=== PATIENT | female | born 1995 | race Caucasian/White ===

== ENCOUNTER 2018-02-09 15:37 | Outpatient (REF) | payer OTHER, SELFPAY ==
[2018-02-09 18:41] LABS: ALT 23 U/L (12-78); AST 19 U/L (15-37); Albumin 3.7 g/dL (3.4-5.0); Alkaline Phosphatase 78 U/L (46-116); Anion Gap 9.8 mmol/L (3-11); BUN 13 mg/dL (7-18); Bilirubin, Total 0.4 mg/dL (0.2-1.0); CO2 24.2 mmol/L (21.0-32.0); CREATININE 0.88 mg/dL (0.55-1.02); Calcium 9.2 mg/dL (8.5-10.1); Chloride 104 mmol/L (98-107); Glucose 105 mg/dL (70-100); HDL Cholesterol 48 mg/dL (40-60); LDL CHOLESTEROL 117 mg/dL (<100); Sodium 138 mmol/L (136-145); TSH 0.41 uIU/mL (0.358-3.74)
== END 2018-02-09 15:57 ==
LOC: NCHCN 15:37
PROVIDERS: PCP Nurse Practitioner Family; Visit Provider Nurse Practitioner Family
DX: R63.5 Abnormal weight gain (principal)
CPT/HCPCS: 80053; 83721; 83718; 84443

== ENCOUNTER 2018-06-06 16:01 | Emergency (ER) | payer OTHER, SELFPAY ==
[2018-06-06 16:03] VITALS: BP 127/77; PULSE 84; RESP 16; TEMP 36.7; O2SAT 99
--- NOTE | 2018-06-06 16:13 | ED.GENADUL_ITS ---
Discharge Plan Disposition Patient Disposition: HOME Condition: Good Discharge Details Chief Complaint: Nk/Back Pain Clinical Impression: Muscle spasms of neck Primary Care Provider: Alee Franco ED Provider: Warren Marley [place] Meds and New Rx's Prescriptions: New lidocaine [Lidoderm] 5 % Adhesive Patch,Medicated 1 patch topical DIRECTED Qty: 5 RF: 0 methocarbamol [Robaxin-750] 750 mg tablet 750 mg PO QID Qty: 20 RF: 0 Continued ergocalciferol (vitamin D2) 400 UNIT tablet 1 tab-cap PO DAILY RF: 0 MOTRIN 800 MG tablet 800 mg PO TID RF: 0 escitalopram oxalate [Lexapro] 10 MG tablet 25 mg PO DAILY Qty: 90 RF: 1 omeprazole 20 MG capsule,delayed release(DR/EC) 20 mg PO DAILY RF: 0 magnesium oxide 500 MG capsule 1,000 mg PO DAILY RF: 0 bupropion HCl (smoking deter) 150 MG tablet extended release 12 hr 300 mg PO DAILY RF: 0 metformin 500 mg Tablet PO HS RF: 0 Discontinued cyclobenzaprine 5 mg Tablet PO HS RF: 0 Discharge Instructions Instructions: Muscle Spasm (ED) Additional Instructions: Continue ibuprofen for anti-inflammatory effect. Use Lidoderm patches to help with pain. Try Robaxin for muscle relaxer. Do not take the Flexeril. May use Tylenol 1 g every 6 hours for pain as well. Follow-up with your primary care next week if not better. Return to emergency department if you develop fever, neurologic changes, chest pain, shortness of breath Referrals: Alee Franco [Primary Care Provider] - Medical Decision Making Patient with pain and muscle spasm that is likely related to left trapezius spasm given her location/description of pain. She has no history of trauma and has no midline tenderness. She has no chest pain or shortness of breath. Pain is worse with movement not with breathing. Will continue ibuprofen. Will try Lidoderm patch. Will prescribe a new muscle relaxer as Flexeril does not work for her. She is neurologically intact. She does not have fever or headache. She has primary care to follow-up with next week if not better. Return to ED for fever, headache, chest pain, shortness of breath, neurologic changes. HPI General Mode of arrival: ambulatory . Date/Time Provider Initiated Documentation: 06/06/18 16:09 . Limitations to Documentation: no limitations . Information obtained by: patient and RN notes reviewed . HPI Narrative: Patient presents to ED with complaint of left-sided neck and shoulder pain. Patient states she woke up yesterday and had spasm and discomfort in her neck. Seemed to get a little worse over the course of the day. She has used ibuprofen, heat, ice. When she woke up this morning it was worse. It seems to run from the back of the head down to the scapular and out toward the shoulder at this point. She has to turn as a unit because it hurts too much to turn her neck. She denies headache. She denies fever or URI symptoms. She denies chest pain, shortness of breath, pleuritic pain. She has no neurologic symptoms and denies numbness or weakness of the extremities. She denies any trauma. Related Data Home Medications Medication Instructions Recorded Confirmed Motrin 800 mg PO TID tab-cap 07/12/12 06/06/18 ergocalciferol (vitamin D2) 1 tab-cap PO DAILY tab-cap 07/12/12 06/06/18 escitalopram oxalate [Lexapro] 25 mg PO DAILY #90 tab-cap 07/26/12 06/06/18 bupropion HCl (smoking deter) 300 mg PO DAILY 10/28/16 06/06/18 magnesium oxide 1,000 mg PO DAILY 10/28/16 06/06/18 omeprazole 20 mg PO DAILY tab-cap 10/28/16 06/06/18 lidocaine [Lidoderm] 1 patch TOPICAL DIRECTED #5 ea 06/06/18 metformin tab PO HS 06/06/18 methocarbamol [Robaxin-750] 750 mg PO QID #20 tab 06/06/18 Previous Rx's Medication Instructions Recorded lidocaine [Lidoderm] 1 patch TOPICAL DIRECTED #5 ea 06/06/18 methocarbamol [Robaxin-750] 750 mg PO QID #20 tab 06/06/18 Allergies Allergy/AdvReac Type Severity Reaction Status Date / Time No Known Allergies Allergy Unverified 06/06/18 16:08 General Stated Complaint: Nk/Back Pain ROBERT: 3 Review of Systems Constitutional Denies chills, Denies fever(s), Denies headache(s), Denies malaise and Denies weakness ENT Denies otalgia, Denies facial pain, Denies headache(s), Denies nasal congestion, Reports neck pain, Denies sinus pain, Denies sinus pressure and Denies sore throat Cardiovascular Denies chest pain, Denies diaphoresis, Denies syncope, Denies palpitations and Denies dyspnea Respiratory Denies cough and Denies dyspnea Musculoskeletal Denies back pain, Denies arthralgias, Denies muscle weakness, Reports neck pain, Denies numbness, Denies radiating pain into limb and Denies tingling Integumentary/Breasts Denies rash Neurologic Denies syncope, Denies headache(s), Denies focal weakness, Denies numbness, Denies radicular pain, Denies sensory deficit, Denies tingling, Denies paresthesias and Denies weakness Endocrine Denies palpitations PFSH Medical History Anxiety (Chronic) Depression (Chronic) GERD (gastroesophageal reflux disease) (Chronic) Migraine (Chronic) RSD (reflex sympathetic dystrophy) (Chronic) Surgical History History of surgical procedure (Inactive) Social History Smoking and Tabacco status: Never Exam Const General: cooperative and no acute distress Orientation: alert and oriented x3 [facility] Head: normocephalic and atraumatic Face and sinus: normal facial exam Neck Neck: normal visual inspection, limited ROM, trachea midline and supple Resp Effort & Inspection: normal respiratory effort Auscultation: clear to auscultation bilaterally Cardio Rate: regular rate Rhythm: regular rhythm Heart Sounds: S1 normal and S2 normal Pulses: radial pulses present Back/Spine/Pelvis Cervical Spine: cervical muscular tenderness, pain with cervical ROM and No cervical spinal tenderness Neuro General: alert, oriented x3, no focal motor deficits and CN's II-XI intact bilaterally Cognition: normal cognition Speech: speech normal Gait: normal gait Sensory Exam: no sensory deficits noted Course Vital Signs Temperature 98.1 F 06/06/18 16:03 Pulse 84 06/06/18 16:03 Respiratory Rate 16 06/06/18 16:03 Blood Pressure 127/77 06/06/18 16:03 Pulse Oximetry 99 06/06/18 16:03 Temperature 98.1 F 06/06/18 16:03 Temperature Source Skin 06/06/18 16:03 Pulse 84 06/06/18 16:03 Respiratory Rate 16 06/06/18 16:03 Blood Pressure 127/77 06/06/18 16:03 Blood Pressure Position Sitting 06/06/18 16:03 Pulse Oximetry 99 06/06/18 16:03 Oxygen Delivery Method Room Air 06/06/18 16:03 Oxygen Flow Rate 0 06/06/18 16:03 Pain Level 7 06/06/18 16:03
[2018-06-06] MEDS: Lidocaine 5% Patch 1 PATCH TP (16:23)
[2018-06-06 16:28] VITALS: BP 127/77; PULSE 84; RESP 16; TEMP 36.7; O2SAT 99
== END 2018-06-06 16:28 | disposition home or self-care (01) ==
PROVIDERS: Emergency Provider Emergency Medicine; PCP Nurse Practitioner Family
DX: M62.830 Muscle spasm of back (principal); M54.6 Pain in thoracic spine
CPT/HCPCS: 99283

== ENCOUNTER 2019-04-08 08:54 | Outpatient (REF) | payer OTHER, SELFPAY ==
--- NOTE | 2019-04-08 08:15 | PAPFT_PTH ---
PATIENT: Shruthi Rosenberg LOC: [facility] U#:[id number] AGE/SX: 23/F ROOM: RE04/08/[address]: Alee Franco : 1995 BED: DIS: 04/08/2019 SPEC #: [id number] RECD: 04/09/19 12:54 STATUS: LAUREN REQ #: [id number] TROY: 04/08/19 08:[address]: Alee Franco DEPT: [facility] Cytology RECD BY: Emili Saavedra Tissues: 1 - CX/ENDOCX FOR PAP SMEARS Procedures: PAP THIN PREP/[facility] Screening Comments: [id number]
[2019-04-08 22:55] LABS: HCT 38.6 % (36.0-46.0); HGB 12.6 g/dL (12.0-15.5); Mean Corp. HGB Concentration 32.6 g/dL (32.0-36.0); Mean Corpuscular Hemoglobin 29.2 pg (27.0-33.0); Mean Corpuscular Volume 89.4 fL (80-95); Platelet Count 323 x1000/uL (130-400); RBC 4.32 m/cumm (4.00-5.20); RBC Distribution Width 13.1 % (11.7-14.6)
[2019-04-08 23:21] LABS: Ferritin 10 ng/mL (8-252); Magnesium 1.9 mg/dL (1.8-2.4); Potassium 4.4 mmol/L (3.5-5.1)
== END 2019-04-08 09:14 ==
LOC: NCHCN 08:54
PROVIDERS: PCP Nurse Practitioner Family; Visit Provider Nurse Practitioner Family
DX: R25.2 Cramp and spasm (principal); Z12.4 Encounter for screening for malignant neoplasm of cervix; Z01.419 Encounter for gynecological examination (general) (routine) without abnormal findings
CPT/HCPCS: 85027; 88142; 82728; 83735; 84132

== ENCOUNTER 2020-02-10 16:19 | Outpatient (REF) | payer MEDICAID, SELFPAY ==
[2020-02-10 20:09] LABS: Calculated LDL 117 mg/dL (<100); Cholesterol 189 mg/dL (<200); Glucose 104 mg/dL (74-106); HDL Cholesterol 40 mg/dL (40-60); TSH 0.74 uIU/mL (0.36-3.74); Triglyceride 164 mg/dL (<150)
[2020-02-10 20:20] LABS: Vitamin D 25 Total 30.9 ng/ml (30-100)
[2020-02-17 13:13] LABS: Testosterone, Total 28 ng/dL (8-60)
[2020-02-20 12:09] LABS: FSH 5.6 IU/L
[2020-02-20 12:10] LABS: LH 9.7 IU/L
[2020-02-20 12:13] LABS: Progesterone <0.20 ng/mL
[2020-02-20 12:16] LABS: DHEA Sulfate 204 mcg/dL (83-377)
== END 2020-02-10 16:39 ==
LOC: NCHCN 16:19
PROVIDERS: PCP Nurse Practitioner Family; Visit Provider Nurse Practitioner Family
DX: F41.1 Generalized anxiety disorder; L70.9 Acne, unspecified; F32.9 Major depressive disorder, single episode, unspecified; N92.0 Excessive and frequent menstruation with regular cycle; Z86.39 Personal history of other endocrine, nutritional and metabolic disease
CPT/HCPCS: 80061; 82306; 82627; 82947; 84402; 84403; 83001; 83002; 84144; 84443

== ENCOUNTER 2020-07-13 13:11 | Outpatient (REF) | payer MEDICAID, SELFPAY ==
[2020-07-13 15:24] LABS: Abs Immature Grans 0.02 10^3/uL (0.0-0.06); Absolute Basophil Count 0.03 10^3/uL (0.0-0.2); Absolute Eosinophil Count 0.19 10^3/uL (0.0-0.7); Absolute Lymphocyte Count 2.03 10^3/uL (1.2-3.4); Absolute Monocyte Count 0.38 10^3/uL (0.1-0.8); Absolute Neutrophil Count 2.69 10^3/uL (1.2-6.7); Basophils % 0.6; Eosinophils % 3.6; Immature Grans % 0.4; MCH 31.3 pg (27.0-33.0); MCHC 33.3 % (32.0-36.0); MPV 12.5 fL (8.0-11.0); Monocytes % 7.1; Neutrophils % 50.3; Nucleated RBC 0 %; Platelet Count 261 10^3/uL (130-400); RBC 4.15 10^6/uL (3.93-5.22); RDW 11.9 % (11.7-14.6); RDW-SD 41.3 fL; WBC 5.34 10^3/uL (4.4-10.8)
[2020-07-13 15:45] LABS: Hemoglobin A1C 5.4 % (<5.7)
[2020-07-13 15:48] LABS: TSH (W/Ref FT4) 0.55 uIU/mL (0.36-3.74)
[2020-07-13 16:27] LABS: Vitamin B12 438 pg/mL (193-986)
== END 2020-07-13 13:12 | disposition home or self-care (01) ==
LOC: NCHCN 13:11
PROVIDERS: PCP Nurse Practitioner Family; Visit Provider Nurse Practitioner Family
DX: R20.2 Paresthesia of skin (principal); Z13.1 Encounter for screening for diabetes mellitus
CPT/HCPCS: 82607; 83036; 84443; 85025

== ENCOUNTER 2020-08-05 08:11 | Outpatient (CLI) | payer MEDICAID, SELFPAY ==
[2020-08-05 10:17] LABS: Source Nasal/Nares
[2020-08-05 14:18] LABS: COVID-19 PCR Negative (Negative)
== END 2020-08-05 08:12 | disposition home or self-care (01) ==
PROVIDERS: PCP Nurse Practitioner Family; Visit Provider Obstetrics & Gynecology
DX: Z20.822 Contact with and (suspected) exposure to COVID-19 (principal); Z01.818 Encounter for other preprocedural examination
CPT/HCPCS: 87635

== ENCOUNTER 2021-05-17 03:09 | Outpatient (CLI) | payer MEDICAID, SELFPAY ==
[2021-05-17 10:21] LABS: Source Nasal/Nares
[2021-05-17 12:26] LABS: COVID-19 PCR Negative (Negative)
== END 2021-05-17 03:10 | disposition home or self-care (01) ==
LOC: LBO 03:09
PROVIDERS: PCP Nurse Practitioner Family; Visit Provider Student in an Organized Health Care Education/Training Program
DX: Z20.822 Contact with and (suspected) exposure to COVID-19 (principal); Z01.818 Encounter for other preprocedural examination
CPT/HCPCS: 87635

== ENCOUNTER 2021-05-18 06:11 | Day surgery (SDC) | payer MEDICAID, SELFPAY ==
[2021-05-18 06:25] VITALS: BP 128/84; PULSE 76; RESP 16; TEMP 36.1; O2SAT 100
[2021-05-18] MEDS: Lactated Ringers 1,000 ML 80 ML IV (06:48)
--- NOTE | 2021-05-18 07:00 | W.PREOPHP ---
Assessment and Plan Assessment and plan (1) Bilateral carpal tunnel syndrome: Status: Acute Assessment and plan: Shruthi is a 25 year old female who has bilateral carpal tunnel syndrome. She has failed basic nonoperative options and desires to proceed with endoscopic carpal tunnel release, today on the right side and then proceeding to the left side in the next few weeks. I discussed the technical details of carpal tunnel release and that I perform an endoscopic release, but would make a larger, open, incision if necessary for visualization. I discussed the risks of the procedure to include, but not limited to, bleeding, infection, palmar pain, stiffness, damage to nerves, damage to vessels, damage to tendons, weakness, recurrence, and incomplete release. Given these risks, Shruthi desires to proceed. History of Present Illness History of Present Illness Chief Complaint: Bilateral Carpal Tunnel Syndrome Narrative: Shruthi is a 25yo female with bilateral carpal tunnel syndrome. She has had nerve conduction studies which confirm the diagnosis in addition to her clinical history of numbness and tingling of the median nerve distribution of both hands. She reports no acute medical issues. No chest pain or SOB. No COVID-19 sick contacts or exposures. She tested negative. Review of Systems All systems reviewed & are unremarkable except as noted in HPI and below PFSH All Active Problems Hallux rigidus, right foot (Acute 01/06/17) Bilateral carpal tunnel syndrome (Acute) Medical History Anxiety Depression GERD (gastroesophageal reflux disease) Migraine RSD (reflex sympathetic dystrophy) Surgical History History of surgical procedure placement and removal of neurostimulator Social History Smoking/Tobacco Use Status: Never Smoking risk assessment performed?: Yes Alcohol Intake: never Drug use: Daily Substance use type: marijuana Details: Drank marijuana oil 05/17/21 around 0900 Do you feel safe at home: Yes Do you feel safe in your relationship?: Yes Additional Social history: Partner in room Meds Allergies and Home Medications Allergies Allergy/AdvReac Type Severity Reaction Status Date / Time No Known Allergies Allergy Unverified 05/18/21 06:29 Home Medications Medication Instructions Recorded Confirmed Type Motrin 800 mg PO TID tab-cap 07/12/12 05/18/21 History ergocalciferol (vitamin D2) 1 tab-cap PO DAILY tab-cap 07/12/12 05/18/21 History escitalopram oxalate [Lexapro] 25 mg PO DAILY #90 tab-cap 07/26/12 05/18/21 History bupropion HCl (smoking deter) 300 mg PO DAILY 10/28/16 05/18/21 History magnesium oxide 1,000 mg PO DAILY 10/28/16 05/18/21 History omeprazole 20 mg PO DAILY tab-cap 10/28/16 05/18/21 History gabapentin 300 mg capsule 300 mg PO BID 02/11/21 05/18/21 History acetaminophen [Tylenol] 650 PO PRN PRN 05/18/21 History Exam Narrative Exam Narrative: Evaluation of bilateral wrists shows no masses or skin changes. Decreased sensation in median nerve distribution which is worsened with Phalen and Rachel's tests. Palpable radial pulse bilaterally. Resp Effort & Inspection: normal respiratory effort Auscultation: clear to auscultation bilaterally Cardio Rate: regular rate Rhythm: regular rhythm Results Last Vital Signs Temp 36.1 C L 05/18/21 06:25 Pulse 76 05/18/21 06:25 Resp 16 05/18/21 06:25 BP 128/84 05/18/21 06:25 Pulse Ox 100 05/18/21 06:25
--- NOTE | 2021-05-18 07:04 | W.ANESPRE ---
General Info Date of Service Date Performed: 05/18/21 Height: 5 ft 2 in Weight: 106.9 kg Body Mass Index (BMI): 43.1 Surgical Procedure: Operation Date: 05/18/21 07:40 Proposed Procedures Side Surgeon p Wrist ECTR Right Len Chan MD Meds Allergies and Home Medications Allergies Allergy/AdvReac Type Severity Reaction Status Date / Time No Known Allergies Allergy Unverified 05/18/21 06:29 Home Medication Medication Instructions Recorded Motrin 800 mg PO TID tab-cap 07/12/12 ergocalciferol (vitamin D2) 1 tab-cap PO DAILY tab-cap 07/12/12 escitalopram oxalate [Lexapro] 25 mg PO DAILY #90 tab-cap 07/26/12 bupropion HCl (smoking deter) 300 mg PO DAILY 10/28/16 magnesium oxide 1,000 mg PO DAILY 10/28/16 omeprazole 20 mg PO DAILY tab-cap 10/28/16 gabapentin 300 mg capsule 300 mg PO BID 02/11/21 acetaminophen [Tylenol] 650 PO PRN PRN 05/18/21 Current Visit Medications: Current Medications Generic Name Dose Route Start Last Admin Trade Name Freq PRN Reason Stop Dose Admin Ringer's Solution 1,000 mls @ 80 mls/hr 05/18/21 06:00 05/18/21 06:48 IV 06/16/21 23:59 80 mls/hr INFUSION JACQUELINE Administration Cefazolin Sodium/Dextrose 2 gm in 50 mls @ 100 mls/hr 05/18/21 06:00 Ancef Duplex IVPB 06/16/21 23:59 PREOP JACQUELINE IV Miscellaneous Supplies 1 each 05/18/21 06:00 Iv Access IV 06/16/21 23:59 DIRECTED JACQUELINE Sodium Chloride 0 ml 05/18/21 06:00 Normal Saline Flush 10 Ml Syr IV 06/16/21 23:59 PRN PRN Sodium Chloride 0 ml 05/18/21 06:00 Normal Saline 10 Ml Vial IJ 06/16/21 23:59 DIRECTED PRN Sterile Water 0 ml 05/18/21 06:00 Water,Injection,Sterile 10 Ml Vial IJ 06/16/21 23:59 DIRECTED PRN PFSH Active Problems Active Problems: Problem Status Onset Code Hallux rigidus, right foot 01/06/17 M20.21 Bilateral carpal tunnel syndrome G56.03 Medical History Medical History Anxiety Depression GERD (gastroesophageal reflux disease) Migraine RSD (reflex sympathetic dystrophy) Medical History Comments:: pt reports no metal, no dentures, no loose teeth Surgical History Surgical History History of surgical procedure placement and removal of neurostimulator Tobacco Smoking/Tobacco Use Status: Never Alcohol Alcohol Intake: never Substance Use Substance use: Daily Substance use type: marijuana Details: Drank marijuana oil 05/17/21 around 0900 Vital Signs and Lab Results Vital Signs Most Recent Vital Signs in EMR: Most Recent Vital Signs Temp Pulse Resp BP Pulse Ox 36.1 C L 76 16 128/84 100 05/18/21 06:25 05/18/21 06:25 05/18/21 06:25 05/18/21 06:25 05/18/21 06:25 Point of Care Results Point of Care Results: POC- Test(urine) Negative 05/18/21 06:42 Lab Results Blood Type / Crossmatch: No Data to Display Complete Blood Count: No Data to Display Complete Metabolic Panel: No Data to Display Liver Function Panel: No Data to Display Coagulation Panel: No Data to Display Cardiac Panel: No Data to Display Arterial Blood Gas: No Data to Display Venous Blood Gas: No Data to Display Pancreas Panel: No Data to Display Thyroid Panel: No Data to Display Infectious Disease: Coronavirus (COVID-19)(PCR) Negative (Negative) 05/17/21 08:43 05/17/21 Coronavirus 2019 Source Nasal/Nares 05/17/21 08:43 05/17/21 Blood Cultures: No Data to Display Toxicology Panel: No Data to Display Panel: No Data to Display Anesthesia Assessment and Plan Anesthesia History Personal History: No History of Anesthesia Complications Family History: No Family History of Anesthesia Complications Exercise Tolerance Exercise Tolerance: Metabolic Equivalents>4 Pertinent Negatives Pertinent Negatives: No Symptoms of GERD, No Major Cardiovascular Symptoms or Complaints, No Major Pulmonary Symptoms or Complaints and No History of CVA/TIA Cardiac & Pulmonary Exam Cardiac Exam: Normal S1/S2 Heart Sounds Pulmonary Exam: Clear Bilateral Breath Sounds Implantable Cardiac Device Does patient have a Pacemaker or an ICD?: No Airway Exam Known Difficult Airway: No Mallampati Class: 1 Mouth Opening: Normal (> 3cm) Thyromental Distance: Greater than 3 cm Neck Range of Motion: Full ROM Neck Circumference: Normal Teeth Condition: Normal Dentition ASA Classification ASA Score: ASA 2 Emergency Case?: No NPO Status NPO Status: NPO Clears >2 hours, Solids >8 hours Status Status: Negative HCG Anesthesia Plan Resuscitation Status: Full Code Anesthesia Technique: General Anesthesia Airway Planned: Natural Airway Monitors Used: Standard Monitors
[2021-05-18 07:05] VITALS: BMI 43.1
--- NOTE | 2021-05-18 07:07 | W.PM.DSUDISC ---
Discharge Plan Disposition Patient Disposition: HOME Condition: Good Discharge Details Reason For Visit: Right Carpal Tunnel Syndrome Attending Provider: Len Chan Primary Care Provider: Alee Franco Home Meds and New Rx's Prescriptions: New acetaminophen 500 mg tablet 500 mg PO Q6H PRN PRN (Reason: pain) Qty: 60 RF: 3 hydrocodone-acetaminophen 5-325 mg tablet 1 tab PO Q6H PRN (Reason: pain) Qty: 4 RF: 0 ibuprofen 600 mg tablet 600 mg PO TID PRN (Reason: pain) Qty: 90 RF: 3 Continued gabapentin 300 mg capsule 300 mg PO BID RF: 0 ergocalciferol (vitamin D2) 400 UNIT tablet 1 tab-cap PO DAILY RF: 0 escitalopram oxalate [Lexapro] 10 MG tablet 25 mg PO DAILY Qty: 90 RF: 1 omeprazole 20 MG capsule,delayed release(DR/EC) 20 mg PO DAILY RF: 0 magnesium oxide 500 MG capsule 1,000 mg PO DAILY RF: 0 bupropion HCl (smoking deter) 150 MG tablet extended release 12 hr 300 mg PO DAILY RF: 0 Discontinued MOTRIN 800 MG tablet 800 mg PO TID RF: 0 acetaminophen [Tylenol] 325 mg Capsule 650 mg PO PRNRF: 0 Discharge Instructions Stand Alone Forms: Dustin Milton Tunnel Release Referrals: Len Chan MD [ [facility] STAFF PHYSICIAN] - Activity:: Elevate Remove Dressings/Wound Care:: 48 hours Shower/Bathe:: 48 hours Diet:: As Tolerated Discharge Orders Discharge Orders: Discharge Order (Routine); Ordered 05/18/21 Ordered By: Len Chan DS: Diagnosis Discharge Diagnosis (1) Bilateral carpal tunnel syndrome: Status: Acute
[2021-05-18] MEDS: ceFAZolin 2 GM/50 ML BAG IVPB (07:16)
[2021-05-18] MEDS: Sodium Bicarbonate 50 MEQ/50 ML VIAL (07:37)
--- NOTE | 2021-05-18 07:42 | ROE_ITS ---
Date of service: 05/18/21 Time of Service: 07:42 Operative Note Operative Note DATE OF PROCEDURE: 05/18/21 PRE-OP DIAGNOSIS: Right Carpal Tunnel Syndrome POST-OP DIAGNOSIS: same PROCEDURE: Right Endoscopic Carpal Tunnel Release SURGEON: Len Chan ANESTHESIA TYPE: General:No Airway Refer to Anesthesia Record ESTIMATED BLOOD LOSS: 0 PATHOLOGY: none sent TOURNIQUET TIME: 5 COMPLICATIONS: None Patient was transported to: same day Patient's condition: stable Indications: I have seen Shruthi in clinic for symptoms of carpal tunnel syndrome. The numbness, tingling, and pain limited function. Clinical exam findings with nerve conduction tests confirmed the diagnosis of carpal tunnel syndrome. Nonoperative measures such as bracing, time, activity modifications had been tried but disability and pain persisted. I discussed carpal tunnel release with the patient. I reviewed the risks of the procedure to include, but not limited to, bleeding, infection, pain, stiffness, incomplete release, damage to nerves or vessels, persistent numbness, recurrence. Despite these risks, the patient elected to proceed. Findings: There was tightened carpal tunnel. This was dilated and released successfully with the endoscopic with increased space within the tunnel. The antebrachial fascia was released proximally freeing the median nerve at the wrist. Procedure Description: Shruthi was greeted in the preoperative holding area where the correct side was identified and marked. The consent was reviewed with the patient and signed. The history and physical was updated. All questions were answered. She was taken back to the operating room. The patient was placed into the supine position on the operating room table with the right arm on an arm board. A nonsterile tourniquet was placed high onto the arm. All bony prominences were well padded. Prophylactic antibiotics in the form of Cefazolin were administered. The right arm was then prepped with Chloraprep and draped in a standard fashion with stockinette and extremity drape. A timeout to confirm correct identity, side and site, procedure, allergies, anesthesia, and medical concerns was performed. The surgical site was marked in the volar wrist creases in line with the radial border of the fourth ray. This area was anesthetized with approximately 6cc of 1% Lidocaine. The limb was then exsanguinated with an Esmarch. The skin was incised with a 15 blade, approximately 1cm. The skin only was cut and the deeper tissue was dissected bluntly with a tenotomy scissor, avoiding passing nerve and venous structures. The fascia was penetrated and opened bluntly. A two-prong skin hook was placed under this proximal fascial edge. A series of hamate finders were used to identify and dilate the carpal tunnel. Synovial elevator was used to free synovial attachments to the underside of the transverse carpal ligament. My thumb was kept in the palm to jackie the distal extent of the carpal tunnel and correctly position the hand. The [employer] end oscope was inserted without difficulty and without resistance. Excellent visualization showed horizontally running fibers of the transverse carpal ligament (TCL). The distal extent of the TCL was visualized and the end of the scope palpated with the thumb. The blade was elevated and withdrawn from distal to proximal. The TCL was split into two flaps. The endoscope was reinserted to confirm complete release and any remnant ligament was incised. The scope was withdrawn and the proximal aspect of the carpal tunnel was grossly inspected and appeared release with the median nerve visible. The antebrachial fascia at the level of the wrist was then freed from the overlying skin and then the underlying median nerve with blunt dissection. This was transected longitudinally for about 3cm proximal to the wrist incision. The wound was then irrigated with easy flow of irrigant distally and proximally. The incision was closed with a single 4-0 Nylon suture. The wound was dressed with Xeroform, Gauze, Kerlix and Kenan. The tourniquet was deflated with the initial dressing and held with some pressure. Blood flow returned easily to all digits with capillary refill less than 2 seconds. The patient tolerated the procedure well and was returned to the Same Day Surgery area in a stable condition suffering no known complication.
--- NOTE | 2021-05-18 07:49 | W.ANESPOSTOP ---
Postoperative Evaluation Date, Time and Location Date Performed: 05/18/21 Time Performed: 07:49 Patient Location: Day Surgery Unit Vital Signs Most Recent Imported Vital Signs: Most Recent Vital Signs Temp Pulse Resp BP Pulse Ox 36.1 C L 76 16 128/84 100 05/18/21 06:25 05/18/21 06:25 05/18/21 06:25 05/18/21 06:25 05/18/21 06:25 Most Recent Manually Entered Vital Signs: Adult Blood Pressure: 110/74 Heart Rate: 87 Respirations: 14 Oxygen Saturation (%): 97 Temperature (C): 36.1 C Pain Score (0-10 Scale): 0 Pain Score Most Recent Pain Score: Most Recent Pain Score Pain Level 0 05/18/21 06:25 Assessment Mental Status: Awake (Alert & Oriented to Patient Baseline) Airway and Respiratory Function: Patent airway with normal (patient baseline) respiratory exam Cardiovascular Function: Hemodynamically Stable Hydration Status: Adequately Hydrated Nausea & Vomiting: No Nausea or Vomiting Pain: Pt. Denies Any Pain Peripheral Nerve Block: Patient did not receive a nerve block
[2021-05-18 07:50] VITALS: BP 110/74; PULSE 87; RESP 14; TEMPC 36.1; O2SAT 97
[2021-05-18 07:58] VITALS: BP 110/74; PULSE 78; RESP 18; TEMP 36.1; O2SAT 97
[2021-05-18 08:25] VITALS: BP 104/71; PULSE 80; RESP 18; TEMP 36.3; O2SAT 98
== END 2021-05-18 08:42 | disposition home or self-care (01) ==
PROVIDERS: PCP Nurse Practitioner Family; Visit Provider Student in an Organized Health Care Education/Training Program
PROC: 01N54ZZ Release Median Nerve, Percutaneous Endoscopic Approach (ICD-10-PCS; CPT 29848; principal; 2021-05-18 07:30)
DX: G56.03 Carpal tunnel syndrome, bilateral upper limbs (principal); F41.9 Anxiety disorder, unspecified; F32.A Depression, unspecified; K21.9 Gastro-esophageal reflux disease without esophagitis; G43.909 Migraine, unspecified, not intractable, without status migrainosus
CPT/HCPCS: 29848; 81025; J0131; J0690; J1100; J1885; J2001; J2250; J2405

== ENCOUNTER 2021-05-24 01:07 | Outpatient (CLI) | payer MEDICAID, SELFPAY ==
[2021-05-24 15:05] LABS: COVID-19 PCR Negative (Negative)
[2021-05-24 17:19] LABS: Source Nasal/Nares
== END 2021-05-24 01:08 | disposition home or self-care (01) ==
LOC: LBO 01:08
PROVIDERS: PCP Nurse Practitioner Family; Visit Provider Student in an Organized Health Care Education/Training Program
DX: Z20.822 Contact with and (suspected) exposure to COVID-19 (principal); Z01.818 Encounter for other preprocedural examination
CPT/HCPCS: 87635

== ENCOUNTER 2021-05-25 06:19 | Day surgery (SDC) | payer MEDICAID, SELFPAY ==
--- NOTE | 2021-05-25 06:18 | W.PM.DSUDISC ---
Discharge Plan Disposition Patient Disposition: HOME Condition: Good Discharge Details Reason For Visit: Left ECTR Attending Provider: Len Chan Primary Care Provider: Alee Franco Home Meds and New Rx's Prescriptions: No Action gabapentin 300 mg capsule 300 mg PO BID 0RF ergocalciferol (vitamin D2) 400 UNIT tablet 1 tab-cap PO DAILY 0RF escitalopram oxalate [Lexapro] 10 MG tablet 25 mg PO DAILY Qty: 90 1RF omeprazole 20 MG capsule,delayed release(DR/EC) 20 mg PO DAILY 0RF magnesium oxide 500 MG capsule 1,000 mg PO DAILY 0RF Label Comments: 12/23/16-PT STATES TAKING 1 CAP PER DAY--HS, RN bupropion HCl (smoking deter) 150 MG tablet extended release 12 hr 300 mg PO DAILY 0RF acetaminophen 500 mg tablet 500 mg PO Q6H PRN PRN (Reason: pain) Qty: 60 3RF hydrocodone-acetaminophen 5-325 mg tablet 1 tab PO Q6H PRN (Reason: pain) Qty: 4 0RF ibuprofen 600 mg tablet 600 mg PO TID PRN (Reason: pain) Qty: 90 3RF Discharge Instructions Stand Alone Forms: Dustin Milton Tunnel Release Referrals: Len Chan MD [ [facility] STAFF PHYSICIAN] - Activity:: Activity as Tolerated Remove Dressings/Wound Care:: 72 hours Shower/Bathe:: 72 hours Diet:: As Tolerated Discharge Orders Discharge Orders: Discharge Order (Routine); Ordered 05/25/21 Ordered By: Collette Michele DS: Diagnosis Discharge Diagnosis (1) Bilateral carpal tunnel syndrome: Status: Acute
[2021-05-25 06:37] VITALS: BP 114/82; PULSE 84; RESP 18; TEMP 36.6; O2SAT 99
[2021-05-25] MEDS: Lactated Ringers 1,000 ML 80 ML IV (06:49)
--- NOTE | 2021-05-25 07:08 | W.ANESPRE ---
General Info Date of Service Date Performed: 05/25/21 Height: 5 ft 2 in Weight: 108.6 kg Body Mass Index (BMI): 43.7 Surgical Procedure: Operation Date: 05/25/21 07:40 Proposed Procedure Side Surgeon p Wrist ECTR Left Len Chan MD Meds Allergies and Home Medications Allergies Allergy/AdvReac Type Severity Reaction Status Date / Time No Known Allergies Allergy Unverified 05/25/21 06:31 Home Medication Medication Instructions Recorded ergocalciferol (vitamin D2) 10 mcg 1 tab-cap PO DAILY tab-cap 07/12/12 (400 unit) tablet escitalopram oxalate 10 mg tablet 25 mg PO DAILY #90 tab-cap 07/26/12 (Lexapro) bupropion HCl (smoking deter) 150 300 mg PO DAILY 10/28/16 mg tablet,12 hr sustained-release(smoking deterrent) magnesium oxide 500 mg capsule 1,000 mg PO DAILY 10/28/16 omeprazole 20 mg capsule,delayed 20 mg PO DAILY tab-cap 10/28/16 release gabapentin 300 mg capsule 300 mg PO BID 02/11/21 acetaminophen 500 mg tablet 500 mg PO Q6H PRN PRN #60 tab 05/18/21 hydrocodone 5 mg-acetaminophen 325 1 tab PO Q6H PRN #4 tab 05/18/21 mg tablet ibuprofen 600 mg tablet 600 mg PO TID PRN #90 tab 05/18/21 Current Visit Medications: Current Medications Generic Name Dose Route Start Last Admin Trade Name Freq PRN Reason Stop Dose Admin Acetaminophen 650 mg 05/25/21 06:16 Acetaminophen 325 Mg Tab PO Q4H PRN PRN Ringer's Solution 1,000 mls @ 80 mls/hr 05/25/21 06:00 05/25/21 06:49 IV 06/23/21 23:59 80 mls/hr INFUSION JACQUELINE Administration Cefazolin Sodium/Dextrose 2 gm in 50 mls @ 100 mls/hr 05/25/21 06:00 Ancef Duplex IVPB 06/23/21 23:59 PREOP JACQUELINE Ondansetron HCl 4 mg/ Sodium 52 mls @ 200 mls/hr 05/25/21 06:16 Chloride IVPB Q6H PRN PRN IV Miscellaneous Supplies 1 each 05/25/21 06:00 Iv Access IV 06/23/21 23:59 DIRECTED JACQUELINE Oxycodone HCl 5 mg 05/25/21 06:16 Oxycodone 5 Mg Tab PO Q3H PRN PRN Pain Sodium Chloride 0 ml 05/25/21 06:00 Normal Saline Flush 10 Ml Syr IV 06/23/21 23:59 PRN PRN Sodium Chloride 0 ml 05/25/21 06:00 Normal Saline 10 Ml Vial IJ 06/23/21 23:59 DIRECTED PRN Sterile Water 0 ml 05/25/21 06:00 Water,Injection,Sterile 10 Ml Vial IJ 06/23/21 23:59 DIRECTED PRN PFSH Active Problems Active Problems: Problem Status Onset Code Bilateral carpal tunnel syndrome G56.03 Hallux rigidus, right foot 01/06/17 M20.21 Medical History Medical History Anxiety Depression GERD (gastroesophageal reflux disease) Migraine RSD (reflex sympathetic dystrophy) Medical History Comments:: pt reports no metal, no dentures, no loose teeth Surgical History Surgical History History of carpal tunnel release History of surgical procedure placement and removal of neurostimulator Tobacco Smoking/Tobacco Use Status: Never Alcohol Alcohol Intake: never Substance Use Substance use: Daily Substance use type: marijuana Details: Drank marijuana oil 05/24/21 0700 Vital Signs and Lab Results Vital Signs Most Recent Vital Signs in EMR: Most Recent Vital Signs Temp Pulse Resp BP Pulse Ox 36.6 C 84 18 114/82 99 05/25/21 06:37 05/25/21 06:37 05/25/21 06:37 05/25/21 06:37 05/25/21 06:37 Point of Care Results Point of Care Results: POC- Test(urine) Negative 05/25/21 06:53 Lab Results Blood Type / Crossmatch: No Data to Display Complete Blood Count: No Data to Display Complete Metabolic Panel: No Data to Display Liver Function Panel: No Data to Display Coagulation Panel: No Data to Display Cardiac Panel: No Data to Display Arterial Blood Gas: No Data to Display Venous Blood Gas: No Data to Display Pancreas Panel: No Data to Display Thyroid Panel: No Data to Display Infectious Disease: Coronavirus (COVID-19)(PCR) Negative (Negative) 05/24/21 08:46 05/24/21 Coronavirus 2019 Source Nasal/Nares 05/24/21 08:46 05/24/21 Blood Cultures: No Data to Display Toxicology Panel: No Data to Display Panel: No Data to Display Anesthesia Assessment and Plan Anesthesia History Personal History: No History of Anesthesia Complications Family History: No Family History of Anesthesia Complications Exercise Tolerance Exercise Tolerance: Metabolic Equivalents>4 Pertinent Negatives Pertinent Negatives: No Symptoms of GERD Cardiac & Pulmonary Exam Cardiac Exam: Normal S1/S2 Heart Sounds Pulmonary Exam: Clear Bilateral Breath Sounds Implantable Cardiac Device Does patient have a Pacemaker or an ICD?: No Airway Exam Known Difficult Airway: No Mallampati Class: 1 Mouth Opening: Normal (> 3cm) Thyromental Distance: Greater than 3 cm Neck Range of Motion: Full ROM Neck Circumference: Normal Teeth Condition: Normal Dentition ASA Classification ASA Score: ASA 3 Emergency Case?: No NPO Status NPO Status: NPO Clears >2 hours, Solids >8 hours Status Status: Negative HCG Anesthesia Plan Resuscitation Status: Full Code Anesthesia Technique: General Anesthesia Airway Planned: Natural Airway Monitors Used: Standard Monitors
[2021-05-25 07:11] VITALS: BMI 43.7
[2021-05-25] MEDS: ceFAZolin 2 GM/50 ML BAG IVPB (07:20)
[2021-05-25] MEDS: Sodium Bicarbonate 50 MEQ/50 ML VIAL (07:38)
[2021-05-25 07:45] VITALS: BP 108/62; PULSE 84; RESP 14; TEMP 36.2; O2SAT 96
[2021-05-25 07:59] VITALS: BP 99/70; PULSE 78; RESP 16; TEMP 36.2; O2SAT 97
--- NOTE | 2021-05-25 08:13 | W.ANESPOSTOP ---
Postoperative Evaluation Date, Time and Location Date Performed: 05/25/21 Time Performed: 08:13 Patient Location: Day Surgery Unit Vital Signs Most Recent Imported Vital Signs: Most Recent Vital Signs Temp Pulse Resp BP Pulse Ox 36.2 C L 78 16 99/70 L 97 05/25/21 07:59 05/25/21 07:59 05/25/21 07:59 05/25/21 07:59 05/25/21 07:59 Pain Score Most Recent Pain Score: Most Recent Pain Score Pain Level 0 05/25/21 07:45 Assessment Mental Status: Awake (Alert & Oriented to Patient Baseline) Airway and Respiratory Function: Patent airway with normal (patient baseline) respiratory exam Cardiovascular Function: Hemodynamically Stable Hydration Status: Adequately Hydrated Nausea & Vomiting: No Nausea or Vomiting Pain: Pt. Denies Any Pain Peripheral Nerve Block: Patient did not receive a nerve block
--- NOTE | 2021-05-25 08:13 | W.PM.OP ---
Date of service: 05/25/21 Time of Service: 07:45 Operative Note Operative Note DATE OF PROCEDURE: 05/25/21 PRE-OP DIAGNOSIS: Left Carpal Tunnel Syndrome POST-OP DIAGNOSIS: same PROCEDURE: Left Endoscopic Carpal Tunnel Release SURGEON: Len Chan ANESTHESIA TYPE: General:No Airway Refer to Anesthesia Record ESTIMATED BLOOD LOSS: 0 PATHOLOGY: none sent TOURNIQUET TIME: 4 COMPLICATIONS: None Patient was transported to: same day Patient's condition: stable Indications: I have seen Shruthi in clinic for symptoms of carpal tunnel syndrome. The numbness, tingling, and pain limited function. Clinical exam findings with nerve conduction tests confirmed the diagnosis of carpal tunnel syndrome. Nonoperative measures such as bracing, time, activity modifications had been tried but disability and pain persisted. I discussed carpal tunnel release with the patient. I reviewed the risks of the procedure to include, but not limited to, bleeding, infection, pain, stiffness, incomplete release, damage to nerves or vessels, persistent numbness, recurrence. Despite these risks, the patient elected to proceed. Findings: There was tightened carpal tunnel. This was dilated and released successfully with the endoscopic with increased space within the tunnel. The antebrachial fascia was released proximally freeing the median nerve at the wrist. Suture from the right side was removed. Procedure Description: Shruthi was greeted in the preoperative holding area where the correct side was identified and marked. The consent was reviewed with the patient and signed. The history and physical was updated. All questions were answered. She was taken back to the operating room. The patient was placed into the supine position on the operating room table with the left arm on an arm board. A nonsterile tourniquet was placed high onto the arm. All bony prominences were well padded. Prophylactic antibiotics in the form of Cefazolin were administered. The left arm was then prepped with Chloraprep and draped in a standard fashion with stockinette and extremity drape. A timeout to confirm correct identity, side and site, procedure, allergies, anesthesia, and medical concerns was performed. The surgical site was marked in the volar wrist creases in line with the radial border of the fourth ray. This area was anesthetized with approximately 6cc of 1% Lidocaine. The limb was then exsanguinated with an Esmarch. The skin was incised with a 15 blade, approximately 1cm. The skin only was cut and the deeper tissue was dissected bluntly with a tenotomy scissor, avoiding passing nerve and venous structures. The fascia was penetrated and opened bluntly. A two-prong skin hook was placed under this proximal fascial edge. A series of hamate finders were used to identify and dilate the carpal tunnel. Synovial elevator was used to free synovial attachments to the underside of the transverse carpal ligament. My thumb was kept in the palm to jackie the distal extent of the carpal tunnel and correctly position the hand. The [employer]aire endoscope was inserted without difficulty and without resistance. Excellent visualization showed horizontally running fibers of the transverse carpal ligament (TCL). The distal extent of the TCL was visualized and the end of the scope palpated with the thumb. The blade was elevated and withdrawn from distal to proximal. The TCL was split into two flaps. The endoscope was reinserted to confirm complete release and any remnant ligament was incised. The scope was withdrawn and the proximal aspect of the carpal tunnel was grossly inspected and appeared release with the median nerve visible. The antebrachial fascia at the level of the wrist was then freed from the overlying skin and then the underlying median nerve with blunt dissection. This was transected longitudinally for about 3cm proximal to the wrist incision. The wound was then irrigated with easy flow of irrigant distally and proximally. The incision was closed with a single 4-0 Nylon suture. The wound was dressed with Xeroform, Gauze, Kerlix and Kenan. The tourniquet was deflated with the initial dressing and held with some pressure. Blood flow returned easily to all digits with capillary refill less than 2 seconds. The suture from the right hand was removed without difficulty and without any concerning findings. Shruthi tolerated the procedure well and was returned to the Same Day Surgery area in a stable condition suffering no known complication.
== END 2021-05-25 08:50 | disposition home or self-care (01) ==
LOC: SUR 06:19
PROVIDERS: PCP Nurse Practitioner Family; Visit Provider Student in an Organized Health Care Education/Training Program
PROC: 01N54ZZ Release Median Nerve, Percutaneous Endoscopic Approach (ICD-10-PCS; CPT 29848; principal; 2021-05-25 07:30)
DX: G56.02 Carpal tunnel syndrome, left upper limb (principal); K21.9 Gastro-esophageal reflux disease without esophagitis; F41.9 Anxiety disorder, unspecified; F32.A Depression, unspecified; G43.909 Migraine, unspecified, not intractable, without status migrainosus
CPT/HCPCS: 29848; J0690; J1885; J2001; J2250; J2405

== ENCOUNTER 2021-06-03 02:55 | Outpatient (CLI) | payer MEDICAID, SELFPAY ==
--- NOTE | 2021-06-03 10:00 | NS.NUTBLAN_ITS ---
Shruthi was referred for weight management. 5'3 242 lbs BMI: 42 Shruthi reports that she has struggled to lose weight for about 10 years. She reports weighing 145 lbs when she was 16 years old and over the next 10 years gained over 100 lbs. She had several medical issues during that time but none that required medications that promote weight gain. Her father has DM2. Diet Recall: toast with PB, pork shop, 1/2 cup rice, salad, chicken breast, vegetables. Does not eat out often or snack Exercise: works about 1-2 hours per day. Shruthi has increased her exercise and lowered carb intake in last year without any significant weight loss. She is frustrated that her efforts are not successful. Session today discussed how insulin resistance can make weight loss extremely difficult. Shruthi would like to lose 100 lbs. She wanted information on weight loss surgery. [employer] Operator has extensive knowledge about weight loss surgery, shared information and asked Shruthi to talk to her PCP about this. Session also focused on how to count carbs and protein and to maximize effect of exercise. Goal: 10 lbs weight loss per month Follow up planned for 06/29/21 at 10 am.
== END 2021-06-03 02:56 | disposition home or self-care (01) ==
LOC: DS 02:55
PROVIDERS: PCP Nurse Practitioner Family; Visit Provider Dietitian, Registered
DX: E66.8 Other obesity (principal); Z68.41 Body mass index [BMI] 40.0-44.9, adult; Z71.3 Dietary counseling and surveillance
CPT/HCPCS: 97802

== ENCOUNTER 2021-06-29 03:19 | Outpatient (CLI) | payer MEDICAID, SELFPAY | END 2021-06-29 03:20 | disposition home or self-care (01) | LOC: DS 03:20 | PROVIDERS: PCP Nurse Practitioner Family; Visit Provider Dietitian, Registered ==

== ENCOUNTER 2022-01-25 17:29 | Emergency (ER) | payer MEDICAID, SELFPAY ==
[2022-01-25 18:06] VITALS: BP 141/86; PULSE 75; RESP 18; TEMP 36.4; O2SAT 99
[2022-01-25 19:00] LABS: ALT 32 U/L (14-59); AST 26 U/L (15-37); Albumin 4.3 g/dL (3.4-5.0); Alkaline Phosphatase 82 U/L (46-116); Anion Gap 6.7 mmol/L (3-11); BUN 18 mg/dL (7-18); Bilirubin, Total 0.4 mg/dL (0.2-1.0); CO2 30.3 mmol/L (21.0-32.0); CREATININE 0.6 mg/dL (0.55-1.02); Calcium 9.6 mg/dL (8.5-10.1); Chloride 103 mmol/L (98-107); Estimated GFR 125.31 (mL/min/1.73m2); Glucose 90 mg/dL (74-106); Magnesium 1.9 mg/dL (1.8-2.4); Potassium 4.5 mmol/L (3.5-5.1); Sodium 140 mmol/L (136-145); Total Protein 8.4 g/dL (6.4-8.2); Troponin I < 50 ng/L (<or=60)
[2022-01-25 19:02] LABS: Abs Immature Grans 0.01 10^3/uL (0.0-0.06); Absolute Basophil Count 0.04 10^3/uL (0.0-0.2); Absolute Eosinophil Count 0.11 10^3/uL (0.0-0.7); Absolute Lymphocyte Count 2.45 10^3/uL (1.2-3.4); Absolute Monocyte Count 0.49 10^3/uL (0.1-0.8); Absolute Neutrophil Count 4.44 10^3/uL (1.2-6.7); Basophils % 0.5; Eosinophils % 1.5; HCT 40.9 % (36.0-46.0); Immature Grans % 0.1; Lymphocytes % 32.5; MCHC 34.2 % (32.0-36.0); MCV 93 fL (80-95); MPV 11.3 fL (8.0-11.0); Monocytes % 6.5; Neutrophils % 58.9; Platelet Count 312 10^3/uL (130-400); RBC 4.38 10^6/uL (3.93-5.22); RDW 11.6 % (11.7-14.6); RDW-SD 39.9 fL; WBC 7.54 10^3/uL (4.4-10.8)
[2022-01-25] MEDS: Normal Saline 1,000 ML 1000 ML IV (19:38)
--- NOTE | 2022-01-25 20:00 | RT.EKG_ITS ---
APPROVED REPORT Exam: Resting ECG Reason for Exam: dizziness Patient Location: E HR:60 bpm ECG Measurements Heart Rate 60 AXIS OK 165 P 18 QRSd 82 QRS 67 QT 423 T 45 QTc 423 Conclusion Sinus rhythm...normal P axis, V-rate 60- 99 PHysician: no stemi
--- NOTE | 2022-01-25 20:10 | ED.GENADUL_ITS ---
Discharge Plan Disposition Patient Disposition: HOME Condition: Good Discharge Details Chief Complaint: Dizzy/Sync Clinical Impression: Peripheral positional vertigo of left ear Primary Care Provider: Alee Franco ED Provider: Quinn Whitehead Home Meds and New Rx's Prescriptions: No Action ergocalciferol (vitamin D2) 400 UNIT tablet 1 tab-cap PO DAILY omeprazole 20 MG capsule,delayed release(DR/EC) 20 mg PO DAILY magnesium oxide 500 MG capsule 1,000 mg PO DAILY Label Comments: 12/23/16-PT STATES TAKING 1 CAP PER DAY--HS, RN bupropion HCl (smoking deter) 150 MG tablet extended release 12 hr 300 mg PO DAILY acetaminophen 500 mg tablet 500 mg PO Q6H PRN PRN (Reason: pain) Qty: 60 3RF ibuprofen 600 mg tablet 600 mg PO TID PRN (Reason: pain) Qty: 90 3RF duloxetine 20 mg capsule,delayed release(DR/EC) 1 cap PO BID Label Comments: TAKE TWO CAPSULES BY MOUTH EVERY MORNING FOR FIBROMYALGIA Discharge Instructions Instructions: Benign Paroxysmal Positional Vertigo (ED) Additional Instructions: At this time as we discussed together your symptoms appear consistent with peripheral vertigo. Please drink 10 to 12 cups of fluid/water or electrolyte solution per day. Continue to take your meclizine as directed. Use the Valium only as needed for breakthrough severe dizziness. Follow-up closely with your PCP. If you notice any worsening of your symptoms, or any new symptoms such as vomiting, diarrhea, fever, chills, shortness of breath, chest pain, numbness, weakness, or fainting , please return immediately to the emergency department for reevaluation. Please follow up with your primary care provider as soon as possible for reassessment and reevaluation. As always, it was a pleasure participating in your medical care today. Referrals: Alee Franco [Primary Care Provider] - Medical Decision Making <Alexus Simpson DO - Last Filed: 01/25/22 20:17> 1932 -- 18-year-old female with a history of anxiety, depression, GERD, migraine, complex regional pain syndrome who presents for dizziness for the past 3 days. Blood pressure mildly hypertensive, remainder vitals within normal limits. She appears uncomfortable but nontoxic. She has horizontal nystagmus on exam but no other focal deficits. Normal ENT exam bilaterally. No meningeal signs. Suspect BPPV. Considering her age and history, history and presentation does not appear consistent with subarachnoid hemorrhage or CVA. Do not suspect meningitis. Urine test negative. Will place an IV, obtain screening labs, give a dose of IV Tylenol, Phenergan and p.o. Valium with fluid bolus and reassess. She states meclizine made her feel worse earlier today so we will reserve this if she has no improvement with initial medication 1999 --Case endorsed Dr. Whitehead to follow-up on response to medications and final disposition. If headache persists and she has no improvement, consider dose of meclizine and formal head imaging if indicated. If she improves, plan for discharge to home with follow-up with PCP. <Quinn Whitehead, - Last Filed: 01/25/22 22:08> 1932 -- 18-year-old female with a history of anxiety, depression, GERD, mi graine, complex regional pain syndrome who presents for dizziness for the past 3 days. Blood pressure mildly hypertensive, remainder vitals within normal limits. She appears uncomfortable but nontoxic. She has horizontal nystagmus on exam but no other focal deficits. Normal ENT exam bilaterally. No meningeal signs. Suspect BPPV. Considering her age and history, history and presentation does not appear consistent with subarachnoid hemorrhage or CVA. Do not suspect meningitis. Urine test negative. Will place an IV, obtain screening labs, give a dose of IV Tylenol, Phenergan and p.o. Valium with fluid bolus and reassess. She states meclizine made her feel worse earlier today so we will reserve this if she has no improvement with initial medication 1999 --Case endorsed Dr. Whitehead to follow-up on response to medications and final disposition. If headache persists and she has no improvement, consider dose of meclizine and formal head imaging if indicated. If she improves, plan for discharge to home with follow-up with PCP. Dr. Whitehead's documentation Patient was signed out to me by my colleague Dr. Alexus Simpson. Please refer to HPI, physical exam, assessment and plan. At time of signout we are pending reassessment. On reassessment patient demonstrates normal labs, she is feeling the same. She denies any significant improvement. Personal exam demonstrates left-sided horizontal unidirectional fatigable nystagmus. No rotatory or vertical nystagmus. The Gerry-Hallpike and Glenda maneuver were performed 3 times on the patient and the patient had no improvement of her symptoms unfortunately. She ambulates well and shows no ataxic gait. Negative test of skew. Positive head impulse test to the left. Symptoms are inconsistent clinically at this time with cerebellar stroke. No clinical evidence of meningitis. Symptoms are more concerning for peripheral vertigo. Will recommend continued meclizine at home which she already has, as well as a few Valium to be given as needed. Discussed red flags for which to return, and the importance of rehydration. I have extensively reviewed the treatment plan and discharge instructions with the patient. I have addressed all patient concerns at this time. The patient was made aware of what symptoms to monitor for that would warrant a return to the emergency department. Discussed the plan with the patient, they demonstrate verbal understanding and agreement with our assessment and plan at this time. The documentation in this chart was dictated using [employer] dictation software. Please excuse any dictation errors. HPI <Alexus Simpson, - Last Filed: 01/25/22 20:17> General Mode of arrival: ambulatory . Date/Time Provider Initiated Documentation: 01/25/22 18:03 . Limitations to Documentation: no limitations . Information obtained by: patient . HPI Narrative: Patient is a 18-year-old female who presents to the ED with a complaint of dizziness for the past 3 days. Patient states she awoke with a spinning sensation that is worse with head or body movement. Patient admits to occasional headache when the dizziness becomes severe. She also admits to nausea but denies any fever, vomiting, neck pain, sore throat, chest pain, difficulty breathing or extremity weakness or numbness. Patient states she went to [facility] yesterday and was diagnosed with vertigo and sent home with meclizine. She states she took 1 dose of meclizine at 11 AM today and states she became significantly nauseous and felt worse. She denies any recent illnesses. Related Data Home Medications Medication Instructions Recorded Confirmed ergocalciferol (vitamin D2) 10 mcg 1 tab-cap PO DAILY 07/12/12 01/25/22 (400 unit) tablet bupropion HCl (smoking deter) 150 300 mg PO DAILY 10/28/16 01/25/22 mg tablet,12 hr sustained-release(smoking deterrent) magnesium oxide 500 mg capsule 1,000 mg PO DAILY 10/28/16 01/25/22 omeprazole 20 mg capsule,delayed 20 mg PO DAILY 10/28/16 01/25/22 release acetaminophen 500 mg tablet 500 mg PO Q6H PRN PRN pain #60 tabs 05/18/2101/08 ibuprofen 600 mg tablet 600 mg PO TID PRN pain #90 tabs 05/18/21 01/25/22 duloxetine 20 mg capsule,delayed 1 cap PO BID 01/25/22 01/25/22 release Previous Rx's Medication Instructions Recorded acetaminophen 500 mg tablet 500 mg PO Q6H PRN PRN pain #60 tabs 05/18/21 ibuprofen 600 mg tablet 600 mg PO TID PRN pain #90 tabs 05/18/21 Allergies Allergy/AdvReac Type Severity Reaction Status Date / Time No Known Allergies Allergy Unverified 01/25/22 18:10 General Stated Complaint: Dizzy/Sync ROBERT: 4 Review of Systems <Alexus Simpson DO - Last Filed: 01/25/22 20:17> All systems reviewed & are unremarkable except as noted in HPI and below Constitutional Constitutional: Reports as per HPI, Denies chills, Denies fever(s) and Reports headache(s) Eyes Eyes: Denies blurry vision ENT Ears, Nose, Mouth, and Throat: Reports dizziness, Reports headache(s), Denies sore throat and Denies throat swelling Cardiovascular Cardiovascular: Denies chest pain and Denies dyspnea Respiratory Respiratory: Denies cough and Denies dyspnea Gastrointestinal Gastrointestinal: Denies abdominal pain, Denies diarrhea, Reports nausea and Denies vomiting Genitourinary Genitourinary: Denies hematuria and Denies dysuria Musculoskeletal Musculoskeletal: Denies back pain and Denies numbness Integumentary/Breasts Skin/Breast: Denies lesions and Denies rash Neurologic Neurologic: Reports dizziness, Reports headache(s), Denies localized weakness and Denies numbness Allergic/Immunologic Allergic/Immunologic: Denies throat swelling PFSH <Alexus Simpson DO - Last Filed: 01/25/22 20:17> All Active Problems (Updated 01/25/22 @ 22:08 by Quinn Whitehead DO) Peripheral positional vertigo of left ear (Acute) Bilateral carpal tunnel syndrome (Acute) s/p left ECTR DOS: 05/25/2021 s/p right ECTR DOS: 05/18/2021 Hallux rigidus, right foot (Acute 01/06/17) Medical History (Updated 01/25/22 @ 22:08 by Quinn Whitehead DO) Anxiety Depression GERD (gastroesophageal reflux disease) Migraine RSD (reflex sympathetic dystrophy) Surgical History (Updated 06/03/21 @ 09:06 by Karen Bass) History of carpal tunnel release History of surgical procedure placement and removal of neurostimulator Social History Smoking/Tobacco Use Status: Never Smoking risk assessment performed?: Yes Alcohol Intake: current Alcohol Intake frequency: a few times a month Drug use: Daily Substance use type: marijuana Current gender identity: female Do you feel safe at home: Yes Do you feel safe in your relationship?: Yes Exam <Alexus Simpson DO - Last Filed: 01/25/22 20:17> Const General: cooperative and no acute distress Orientation: alert, awake and oriented x3 HENMT Head: normal to inspection Ears: hearing grossly normal bilaterally, external ears normal and TM's normal bilaterally Face and sinus: normal facial exam Eyes General: appearance normal, both eyes and all related structures Pupils: PERRL EOM: EOM intact bilaterally and nystagmus (horizontal, b/l ) Neck Neck: normal visual inspection and No submandibular swelling Lymphatic: no lymphadenopathy noted Chest Chest: normal inspection of the chest and no tenderness Resp Effort & Inspection: normal respiratory effort and able to speak in complete sentences Auscultation: clear to auscultation bilaterally Cardio Rate: regular rate Rhythm: regular rhythm GI Inspection: normal to inspection Palpation: soft, not firm, not rigid and nontender Auscultation: normal bowel sounds Back/Spine/Pelvis Thoracic/Lumbar Spine: thoracic and lumbar spine normal to inspection Pelvis: no pain with anterior-posterior compression Skin General skin exam: no rashes or lesions noted Neuro General: patient alert, patient awake, patient oriented x3, moves all extremities and no meningeal signs Cranial Nerves: CN's II-XI intact bilaterally and nystagmus (horizontal, b/l ) Cognition: normal cognition Speech: speech normal Motor: muscle tone normal throughout and strength 5/5 throughout Sensory Exam: no sensory deficits noted Extrem General: normal to inspection, full ROM, capillary refill normal, no calf tenderness bilaterally and no edema Psych Appearance: grossly normal Mental Status: mental status grossly normal Speech and Movement: speech and movement normal Affect: normal affect Course <Alexus Brian Simpson, DO - Last Filed: 01/25/22 20:17> Vital Signs Vital signs: Vital Signs Temperature 97.6 F 01/25/22 18:06 Pulse 75 01/25/22 18:06 Respiratory Rate 18 01/25/22 18:06 Blood Pressure 141/86 H 01/25/22 18:06 Pulse Oximetry 99 01/25/22 18:06 Temperature 97.6 F 01/25/22 18:06 Temperature Source Oral 01/25/22 18:06 Pulse 75 01/25/22 18:06 Respiratory Rate 18 01/25/22 18:06 Respiratory Effort Non-Labored 01/25/22 18:09 Blood Pressure 141/86 H 01/25/22 18:06 Blood Pressure Position Sitting 01/25/22 18:06 Pulse Oximetry 99 01/25/22 18:06 Oxygen Delivery Method Room Air 01/25/22 18:06 Oxygen Flow Rate 0 01/25/22 18:06 Pain Level 0 01/25/22 18:06 Lab/Test Results Lab/Test Results: Laboratory Tests Range/Units 01/25/22 01/25/22 01/25/22 18:32 18:32 18:59 WBC Cancelled 7.54 RBC Cancelled 4.38 Hgb Cancelled 14.0 Hct Cancelled 40.9 MCV Cancelled 93 MCH Cancelled 32.0 MCHC Cancelled 34.2 RDW Cancelled 11.6 L Plt Count Cancelled 312 MPV Cancelled 11.3 H Immature Gran % Cancelled 0.1 Neutrophils % Cancelled 58.9 Band Neutrophils % Cancelled Lymphocytes % Cancelled 32.5 Atypical Lymphs % Cancelled Monocytes % Cancelled 6.5 Eosinophils % Cancelled 1.5 Basophils % Cancelled 0.5 Metamyelocytes % Cancelled Myelocytes % Cancelled Promyelocytes % Cancelled Other Cells % Cancelled Nucleated RBC % Cancelled 0.0 Absolute Neutrophils Cancelled 4.44 Absolute Lymphocytes Cancelled 2.45 Absolute Monocytes Cancelled 0.49 Absolute Eosinophils Cancelled 0.11 Absolute Basophils Cancelled 0.04 RBC Morphology Cancelled Polychromasia Cancelled Hypochromasia Cancelled Poikilocytosis Cancelled Basophilic Stippling Cancelled Anisocytosis Cancelled Microcytosis Cancelled Macrocytosis Cancelled Spherocytes Cancelled Tear Drop Cells Cancelled Ovalocytes Cancelled Stomatocytes Cancelled [place] Bodies Cancelled [place] Cells/Echinocytes Cancelled Acanthocytes (Spur) Cancelled Schistocytes Cancelled Sodium (136-145) mmol/L 140 Potassium (3.5-5.1) mmol/L 4.5 Chloride (98-107) mmol/L 103 Carbon Dioxide (21.0-32.0) mmol/L 30.3 Anion Gap (3-11) mmol/L 6.7 BUN (7-18) mg/dL 18 Creatinine (0.55-1.02) mg/dL 0.6 Est GFR (CKD-EPI 2020) (mL/min/1.73m2) 125.31 Glucose (74-106) mg/dL 90 Calcium (8.5-10.1) mg/dL 9.6 Magnesium (1.8-2.4) mg/dL 1.9 Total Bilirubin (0.2-1.0) mg/dL 0.4 AST (15-37) U/L 26 ALT (14-59) U/L 32 Alkaline Phosphatase (46-116) U/L 82 Troponin I (<or=60) ng/L < 50 Total Protein (6.4-8.2) g/dL 8.4 H Albumin (3.4-5.0) g/dL 4.3 POC- Test(urine) Negative Sign Out <Alexus Simpson DO - Last Filed: 01/25/22 20:17> Sign Out Data: Sign Out Comment: Dizziness for 3 days. Follow-up on patient response to medications and final disposition. If her headache and dizziness persists, consider dose of meclizine and head imaging if indicated. If she improves, plan for discharge home with follow-up with pcp. Last updated by Alexus Simpson DO at 01/25/22 20:18 PAWSS <Alexus Simpson DO - Last Filed: 01/25/22 20:17> Have you Been Recently Intoxicated or Drunk Within the Last 30 days?: No Have you Ever Experienced Previous Episodes of Alcohol Withdrawal?: No Have you ever Experienced Withdrawal Seizures?: No Have you ever Experienced Delirium Tremens(DT)s?: No Have you ever undergone Alcohol Rehabilitation Treatment (i.e, inpt ot outpatient treatment programs)?: No Have you ever Experienced Blackouts?: No Have you ever Combined Alcohol with other Downers within the last 90 days?: No Have you ever Combined Alcohol with any other Substance of Abuse during the last 90 days?: No Positive Blood Alcohol level on Presentation? [PCS.BAL]: No Evidence of Increased Autonomic Activity (i.e. HR>120, tremor, sweating, agitation, nausea)?: No Result: 0 <Quinn Whitehead DO - Last Filed: 01/25/22 22:08> Result: 0
[2022-01-25] MEDS: ACETAMINOPHEN 1,000 MG/100 ML BTL 400 MG IVPB (20:37)
[2022-01-25] MEDS: diazePAM 5 MG TAB PO (20:38)
[2022-01-25 22:12] VITALS: RESP 20
[2022-01-25] MEDS: diazePAM 5 MG TAB 15 MG PO (22:15)
== END 2022-01-25 22:44 | disposition home or self-care (01) ==
PROVIDERS: Physician Assistant; Emergency Provider Student in an Organized Health Care Education/Training Program; PCP Nurse Practitioner Family
DX: H81.12 Benign paroxysmal vertigo, left ear (principal)
CPT/HCPCS: 80053; 81025; 93005; 96361; 96374; 96375; 99284; 83735; 84484; 85025; 93010; J0131

== ENCOUNTER 2022-06-25 12:48 | Outpatient (REF) | payer MEDICAID, SELFPAY ==
--- NOTE | 2022-06-25 13:20 | DI.RAD_ITS ---
Exam(s) XR KNEE RT 3V AP,LAT,ALONDRA EXAM: XR KNEE RT 3V AP,LAT,ALONDRA CLINICAL HISTORY: PAIN. TECHNIQUE: 2D digital imaging was performed of the right knee. Three views obtained. AP, lateral an d PA tunnel views were obtained. COMPARISON: No exams were available for comparison FINDINGS: BONES: No acute fracture is present. No bony destructive lesion is seen. JOINTS: The knee is normally aligned. No joint effusion is seen. SOFT TISSUE: Normal. IMPRESSION: Unremarkable radiographs of the right knee. DATA REPOSITORY: RADIATION DOSE DELIVERED:
--- NOTE | 2022-06-25 13:46 | DI.VRAD_ITS ---
PROCEDURE INFORMATION: Exam: XR Right Knee Exam date and time: 06/25/2022 1:16 PM Age: 26 years old Clinical indication: Pain; Knee; Right TECHNIQUE: Imaging protocol: Radiologic exam of the right knee. Views: 3 views. COMPARISON: No relevant prior studies available. FINDINGS: Bones/joints: Normal. Soft tissues: Normal. IMPRESSION: No acute findings. Dictated and Authenticated by: Neal Mendez MD. Ordering:RODERICK Finch MD
== END 2022-06-25 12:49 | disposition home or self-care (01) ==
LOC: LBN 12:48
PROVIDERS: PCP Nurse Practitioner Family; Visit Provider Physician Assistant Medical
DX: M25.561 Pain in right knee (principal)
CPT/HCPCS: 73562

== ENCOUNTER 2023-11-10 16:37 | Outpatient (CLI) | payer OTHER, SELFPAY ==
[2023-11-10 17:17] LABS: ALT 26 U/L (14-59); AST 16 U/L (15-37); Albumin 4.2 g/dL (3.4-5.0); Alkaline Phosphatase 56 U/L (46-116); Bilirubin, Direct 0.2 mg/dL (0.0-0.2); Bilirubin, Total 1.14 mg/dL (0.2-1.0); Total Protein 7.7 g/dL (6.4-8.2)
== END 2023-11-10 16:38 | disposition home or self-care (01) ==
LOC: LBO 16:38
PROVIDERS: PCP Nurse Practitioner Family; Visit Provider Nurse Practitioner Family
DX: R63.0 Anorexia (principal); R11.2 Nausea with vomiting, unspecified
CPT/HCPCS: 36415; 80076

== ENCOUNTER 2023-12-13 19:09 | Outpatient (REF) | payer OTHER, SELFPAY ==
[2023-12-13 18:03] LABS: C Diff PCR Negative (Negative)
--- OUTSIDE RECORDS SUMMARY | 2023-12-13 19:12 | XMS_ITS ---
Author Organization Unknown Address [address] [place] [address] [phone] Phone Care Team Providers Care Cooking Teacher Name Role Phone DERRICK AU Registered Nurse Unavailable RIANNA Ba Attending Unavailable RUSSELL JOAQUIN Primary Unavailable UNLISTED PROVIDER - REQUESTED Xhandoff Un available Social History Type Status Start Date End Date Code Code Syst em Smoking History Former smoker 7064066 SNOMED CT Sex Female Vital Signs Vital Sign Value Unit Trinity Value Trinity Unit Date/Time Recent/Initial? Code Code System Body Mass Index 43.90 kg/m2 01/24/2022 11:14 Initial 75378 -5 LOINC Systolic Blood Pressure 124 mm[Hg] 01/24/2022 12:55 Most Recent 8480- 6 LOINC Diastolic Blood Pressure 81 mm[Hg] 01/24/2022 12:55 Most Recent 8462- 4 LOINC Systolic Blood Pressure 124 mm[Hg] 01/24/2022 11:14 Initial 8480- 6 LOINC Diastolic Blood Pressure 67 mm[Hg] 01/24/2022 11:14 Initial 8462- 4 LOINC Body Surface Area 2.18 m2 01/24/2022 11:14 Initial 3140- 1 LOINC Height 157.480 0 cm 62.00 in 01/24/2022 11:14 Initial 8302- 2 LOINC O2 Saturation 98 % 2021 11:14 Initial 12105 -5 LOINC Pulse 64.0 /min 01/24/2022 12:55 Most Recent 8867- 4 LOINC Pulse 78.0 /min 01/24/2022 11:14 Initial 8867- 4 LOINC Respiration 18 /min 01/25/20 12:55 Most Recent 9279- 1 LOINC Respiration 14 /min 01/25/20 11:14 Initial 9279- 1 LOINC Temperature 37.4 Keila 99.3 F 10/17/20 22 11:14 Initial 8310- 5 LOINC Weight 108.86 kg 240.00 lbs 01/24/2022 11:14 Initial 31391 -7 [facility] Medications Medication Start Date End Date Route Frequency Dose Code Code System Medication Instructions Home Meds Meclizine HCl 25MG Oral Tablet 01/24/2022 02/23/2022 ORAL NEEDED EVERY 8 HOURS 1 TABLET 669022 RxNorm TAKE 1 TABLET ORAL NEEDED EVERY 8 HOURS FOR Dizziness Assessment You had the following problems:CHRONIC PAIN SYNDROMEANXIETYDEPRESSION Hospital Discharge Instructions Should you have any questions prior to discharge, please contact a member of your healthcare team. If you have left the hospital and have any questions, please contact your primary care physician. Reason For Referral No Data Found Procedures Procedure Name Date Status Code Code Syste m Nerve stimulator completed 75758322 SNOMEDCT T & A completed 17455483 SNOMEDCT Bone spur completed 706581852353057 SNOMEDCT Problems Problem Start Date Resolved Date Status Code Code System CHRONIC PAIN SYNDROME active 48531185 6 SNOMED-CT ANXIETY active 09114144 SNOMED-CT DEPRESSION active 52096601 SNOMED-CT Allergies and Adverse Reactions Allergy Substance Reaction Severity Start Date Concern Status Co de Code System No Known Drug Allergies Active 735579558 SNOMED-CT Plan of Treatment MRI C SPINE W/O CONTRAST 02/06/2023 MRI BRAIN W WO CONTRAST 02/28/2022 MRI BRAIN W/O CONTRAST 02/15/2022 Encounters Encounter Diagnosis Start Date Code Code Sys tem Dizziness and giddiness 01/24/2022 881167631 SNOM ED-CT Personal Care Team Section Performer Name Performer Role Active Date Inactive Da cecilia
--- OUTSIDE RECORDS SUMMARY | 2023-12-13 19:12 | XMS_ITS ---
Author Organization Unknown Address [address] [place] [address] [phone] Phone Care Team Providers Care Telephonic Nurse Case Manager Name Role Phone GURPREET OQUENDO Attending Unavailable AUGUSTINEaMlcom EMANI Primary Unavailable Results MR BRAIN WO CONTRAST - Compl eted: 02/15/2022 15:37 LOINC: [No content] Social History Type Status Start Date End Date Code Code Syst em Smoking History Former smoker 6229881 SNOMED CT Sex Female Medications Medication Start Date End Date Route Frequency Dose Code Code System Medication Instructions Home Meds Meclizine HCl 25MG Oral Tablet 01/24/2022 02/23/2022 ORAL NEEDED EVERY 8 HOURS 1 TABLET 369276 RxNorm TAKE 1 TABLET ORAL NEEDED EVERY 8 HOURS FOR Dizziness Assessment You had the following problems:CHRONIC PAIN SYNDROMEANXIETYDEPRESSION Hospital Discharge Instructions Should you have any questions prior to discharge, please contact a member of your healthcare team. If you have left the hospital and have any questions, please contact your primary care physician. Reason For Referral No Data Found Problems Problem Start Date Resolved Date Status Code Code System CHRONIC PAIN SYNDROME active 87510322 6 SNOMED-CT ANXIETY active 16872520 SNOMED-CT DEPRESSION active 03504740 SNOMED-CT Allergies and Adverse Reactions Allergy Substance Reaction Severity Start Date Concern Status Co de Code System No Known Drug Allergies Active 908930349 SNOMED-CT Plan of Treatment MRI C SPINE W/O CONTRAST 02/06/2023 MRI BRAIN W WO CONTRAST 02/28/2022 MRI BRAIN W/O CONTRAST 02/15/2022 Encounters Encounter Diagnosis Start Date Code Code Sys tem Dizziness and giddiness 02/15/2022 SNOM ED-CT Personal Care Team Section Performer Name Performer Role Active Date Inactive Da cecilia
--- OUTSIDE RECORDS SUMMARY | 2023-12-13 19:12 | XMS_ITS ---
Author Organization Unknown Address [address] [place] [address] [phone] Phone Care Team Providers Care Broadband Technician Name Role Phone RUSSELL JOAQUIN Attending Unavailable Social History Type Status Start Date End Date Code Code Syst em Smoking History Former smoker 1162701 SNOMED CT Sex Female Medications Medication Start Date End Date Route Frequency Dose Code Code System Medication Instructions Home Meds Meclizine HCl 25MG Oral Tablet 01/24/2022 02/23/2022 ORAL NEEDED EVERY 8 HOURS 1 TABLET 771478 RxNorm TAKE 1 TABLET ORAL NEEDED EVERY [...] Code Code System CHRONIC PAIN SYNDROME active 90775937 6 SNOMED-CT ANXIETY active 72952658 SNOMED-CT DEPRESSION active 07001507 SNOMED-CT Allergies and Adverse Reactions Allergy Substance Reaction Severity Start Date Concern Status Co de Code System No Known Drug Allergies Active 974766685 SNOMED-CT Plan of Treatment MRI C SPINE W/O CONTRAST 02/06/2023 MRI BRAIN W WO CONTRAST 02/28/2022 MRI BRAIN W/O CONTRAST 02/15/2022 Encounters Encounter Diagnosis Start Date Code Code Sys tem Fibromyalgia 01/11/2022 SNOMED-CT Personal Care Team Section Performer Name Performer Role Active Date Inactive Da te
--- OUTSIDE RECORDS SUMMARY | 2023-12-13 19:12 | XMS_ITS ---
Author Organization Unknown Address [address] [place] [address] [phone] Phone Care Team Providers Care Paint Line Operator Name Role Phone RUSSELL JOAQUIN Attending Unavailable Results TICK BORN DISEASE ANTIBODY P TEX* - Collect Date/Time: 01/12/2022 15:27 [facility] ID: [id number] [address] [place] [address], [phone] LOINC: 89608-9 Test Value Unit Reference Range Code Code System Flag Ehrlichia Chaffeensis(HME) A b, IgG <1:64 <1:64 00018-1 LOINC Anaplasmaphagocytophilum Ab,IgG,S <1:64 <1:64 43373-4 LOINC Babesia microti IgG Ab, S <1:64 <1:64 60612-4 LOINC Lyme Disease Serology, S Negative Negative 43695-0 LOINC Social History Type Status Start Date End Date Code Code Syst em Smoking History Former smoker 9275910 SNOMED CT Sex Female Medications Medication Start Date End Date Route Frequency Dose Code Code System Medication Instructions Home Meds Meclizine HCl 25MG Oral Tablet 01/24/2022 02/23/2022 ORAL NEEDED EVERY 8 HOURS 1 TABLET 269406 RxNorm TAKE 1 TABLET ORAL NEEDED EVERY [...] Code Code System CHRONIC PAIN SYNDROME active 27320786 6 SNOMED-CT ANXIETY active 02471449 SNOMED-CT DEPRESSION active 17333740 SNOMED-CT Allergies and Adverse Reactions Allergy Substance Reaction Severity Start Date Concern Status Co de Code System No Known Drug Allergies Active 288923792 SNOMED-CT Plan of Treatment MRI C SPINE W/O CONTRAST 02/06/2023 MRI BRAIN W WO CONTRAST 02/28/2022 MRI BRAIN W/O CONTRAST 02/15/2022 Encounters Encounter Diagnosis Start Date Code Code Sys tem Fibromyalgia 01/12/2022 255703268 [facility] NetworksOMED-CT Personal Care Team Section Performer Name Performer Role Active Date Inactive Arsalan brooks
--- OUTSIDE RECORDS SUMMARY | 2023-12-13 19:13 | XMS_ITS ---
Author Organization Unknown Address [address] [place] [address] [phone] Phone Care Team Providers Care Client Server Programmer Name Role Phone MARYCARMEN RODRIGUEZ Attending Unavailable RUSSELL JOAQUIN Primary Unavailable Social History Type Status Start Date End Date Code Code Syst em Smoking History Former smoker 8345442 SNOMED CT Sex Female Medications Medication Start Date End Date Route Frequency Dose Code Code System Medication Instructions Home Meds Meclizine HCl 25MG Oral Tablet 01/24/2022 02/23/2022 ORAL NEEDED EVERY 8 HOURS 1 TABLET 405524 RxNorm TAKE 1 TABLET ORAL NEEDED EVERY [...] Code Code System CHRONIC PAIN SYNDROME active 89596227 6 SNOMED-CT ANXIETY active 72882141 SNOMED-CT DEPRESSION active 99975264 SNOMED-CT Allergies and Adverse Reactions Allergy Substance Reaction Severity Start Date Concern Status Co de Code System No Known Drug Allergies Active 628450983 SNOMED-CT Plan of Treatment MRI C SPINE W/O CONTRAST 02/06/2023 MRI BRAIN W WO CONTRAST 02/28/2022 MRI BRAIN W/O CONTRAST 02/15/2022 Personal Care Team Section Performer Name Performer Role Active Date Inactive Da cecilia
--- OUTSIDE RECORDS SUMMARY | 2023-12-13 19:13 | XMS_ITS ---
Author Organization Unknown Address [address] [place] [address] [phone] Phone Care Team Providers Care Television Technician Name Role Phone MARYCARMEN RODRIGUEZ Attending Unavailable RUSSELL JOAQUIN Primary Unavailable Social History Type Status Start Date End Date Code Code Syst em Smoking History Former smoker 5919435 SNOMED CT Sex Female Assessment You had the following problems:CHRONIC PAIN SYNDROMEANXIETYDEPRESSION Hospital Discharge Instructions Should you have any questions prior to discharge, please contact a member of your healthcare team. If you have left the hospital and have any questions, please contact your primary care physician. Reason For Referral No Data Found Problems Problem Start Date Resolved Date Status Code Code System CHRONIC PAIN SYNDROME active 59614566 6 SNOMED-CT ANXIETY active 87558625 SNOMED-CT DEPRESSION active 54562287 SNOMED-CT Allergies and Adverse Reactions Allergy Substance Reaction Severity Start Date Concern Status Co de Code System No Known Drug Allergies Active 502890388 SNOMED-CT Plan of Treatment MRI C SPINE W/O CONTRAST 02/06/2023 MRI BRAIN W WO CONTRAST 02/28/2022 MRI BRAIN W/O CONTRAST 02/15/2022 Encounters Encounter Diagnosis Start Date Code Code Sys tem Migraine without aura, not refractory 07/07/2022 425 007452 SNOMED-CT Personal Care Team Section Performer Name Performer Role Active Date Inactive Da te
--- OUTSIDE RECORDS SUMMARY | 2023-12-13 19:13 | XMS_ITS ---
Author Organization Unknown Address [address] [place] [address] [phone] Phone Care Team Providers Care Glue Maker Name Role Phone RUSSELL JOAQUIN Attending Unavailable Results MR ANGIOGRAPHY HEAD WO CONTR AST - Completed: 02/28/2022 15:55 LOINC: [facility] [place], [place] [address] PACS CONDUIT MECHANIC REPORT Patient Name: ANY RIVAS MRN: Sex: : Age: [id number] F 1995 Account: Accession: Admit: StayType: [id number] 02/28/2022 O/P Ordered: Order ID: Submitted: Ordering Provider: 02/28/2022 14:16 [id number] [facility] EMANI WELLS Completed: Technologist: Resulted: 02/28/2022 15:55 [facility] 02/28/2022 15:52 Study Description: MR BRAIN WITH CONTRAST Study Reason: ABNORMAL MRI Technique: Multiplanar multisequence MRI was performed. Contrast: 20 mL Prohance intravenously. Comparison: Comparison examination is 02/15/2022. Study Description: MR BRAIN WITH CONTRAST Reason For Study: ABNORMAL MRI FINDINGS The visualized internal carotid arteries appear intact, no aneurysm, stenosis, or dissection. Visualized vertebral arteries appear intact, no aneurysm, stenosis or dissection. There is a small right vertebral artery identified. There is a dominant left vertebral artery. Basilar artery appears normal, no aneurysm, stenosis, or dissection. The anterior cerebral arteries and major branch vessels appear intact. No aneurysm, stenosis, or dissection. The middle cerebral arteries and major branch vessels appear intact. No aneurysm, stenosis, or dissection. The posterior cerebral arteries and major branch vessels appear intact. No aneurysm, stenosis, or dissection. IMPRESSION 1. Negative MR angiography, alitcy-ig-Fztoxt region. 2. Dominant left vertebral artery. Small patent right vertebral artery is identified. FINDINGS: VENTRICLES AND EXTRA AXIAL SPACES: Normal in size and morphology for the patient's age. HEMORRHAGE: None. CEREBRAL PARENCHYMA: No focus of restricted diffusion to suggest acute infarct. No space-occupying lesion identified. The previously noted white matter foci are not well visualized on this current examination. No suspicious white matter lesions or enhancing lesions are identified. MIDLINE SHIFT: None. BRAINSTEM/CEREBELLUM: Normal. CALVARIUM: Normal. ENHANCEMENT: No suspicious enhancement identified. VISUALIZED PARANASAL SINUSES/MASTOIDS: Clear. WALES [place]: Normal flow void. PITUITARY GLAND: Unremarkable. OTHER FINDINGS: IMPRESSION: No acute intracranial process. No enhancing lesions are identified Report Digitally Signed by Warren Pino on 02/28/2022 03:52 PM EST MR BRAIN WITH CONTRAST - Com pleted: 02/28/2022 15:55 LOINC: [facility] [place], [place] [address] PACS CONDUIT MECHANIC REPORT Patient Name: ANY RIVAS MRN: Sex: : Age: [id number] F 1995 Account: Accession: Admit: StayType: [id number] 02/28/2022 O/P Ordered: Order ID: Submitted: Ordering Provider: 02/28/2022 14:15 [id number] EMANI DIALLO Completed: Technologist: Resulted: 02/28/2022 14:15 02/28/2022 15:52 Study Description: MR BRAIN WITH CONTRAST Study Reason: ABNORMAL MRI Technique: Multiplanar multisequence MRI was performed. Contrast: 20 mL Prohance intravenously. Comparison: Comparison examination is 02/15/2022. Study Description: MR BRAIN WITH CONTRAST Reason For Study: ABNORMAL MRI FINDINGS The visualized internal carotid arteries appear intact, no aneurysm, stenosis, or dissection. Visualized vertebral arteries appear intact, no aneurysm, stenosis or dissection. There is a small right vertebral artery identified. There is a dominant left vertebral artery. Basilar artery appears normal, no aneurysm, stenosis, or dissection. The anterior cerebral arteries and major branch vessels appear intact. No aneurysm, stenosis, or dissection. The middle cerebral arteries and major branch vessels appear intact. No aneurysm, stenosis, or dissection. The posterior cerebral arteries and major branch vessels appear intact. No aneurysm, stenosis, or dissection. IMPRESSION 1. Negative MR angiography, cbnxoc-gx-Krceei region. 2. Dominant left vertebral artery. Small patent right vertebral artery is identified. FINDINGS: VENTRICLES AND EXTRA AXIAL SPACES: Normal in size and morphology for the patient's age. HEMORRHAGE: None. CEREBRAL PARENCHYMA: No focus of restricted diffusion to suggest acute infarct. No space-occupying lesion identified. The previously noted white matter foci are not well visualized on this current examination. No suspicious white matter lesions or enhancing lesions are identified. MIDLINE SHIFT: None. BRAINSTEM/CEREBELLUM: Normal. CALVARIUM: Normal. ENHANCEMENT: No suspicious enhancement identified. VISUALIZED PARANASAL SINUSES/MASTOIDS: Clear. WALES [place]: Normal flow void. PITUITARY GLAND: Unremarkable. OTHER FINDINGS: IMPRESSION: No acute intracranial process. No enhancing lesions are identified Report Digitally Signed by Warren Pino on 02/28/2022 03:52 PM EST Social History Type Status Start Date End Date Code Code Syst em Smoking History Former smoker 4357153 SNOMED CT Sex Female Assessment You had [...] Code Code System CHRONIC PAIN SYNDROME active 38096525 6 SNOMED-CT ANXIETY active 70663805 SNOMED-CT DEPRESSION active 27775647 SNOMED-CT Allergies and Adverse Reactions Allergy Substance Reaction Severity Start Date Concern Status Co de Code System No Known Drug Allergies Active 899215289 SNOMED-CT Plan of Treatment MRI C SPINE W/O CONTRAST 02/06/2023 MRI BRAIN W WO CONTRAST 02/28/2022 MRI BRAIN W/O CONTRAST 02/15/2022 Encounters Encounter Diagnosis Start Date Code Code Sys tem Abnormal findings on diagnos tic imaging of skull and head, not elsewhere classified 02/28/2022 SNOMED-CT Personal Care Team Section Performer Name Performer Role Active Date Inactive Da cecilia
--- OUTSIDE RECORDS SUMMARY | 2023-12-13 19:13 | XMS_ITS ---
Author Organization Unknown Address [address] [place] [address] [phone] Phone Care Team Providers Care Tamale Machine Feeder Name Role Phone SABA PHIPPS Registered Nurse Unavailable GENNA Torres Attending Unavailable UNLISTED PROVIDER - REQUESTED ER Un available HECK EMANI Primary Unavailable Results TSH THYROID STIMULATING HORM ONE* - Collect Date/Time: 02/23/2022 14:43 [facility] ID: [id number] [address] [place], [place], [address] LOINC: 3014-8 Test Value Unit Reference Range Code Code System Flag TSH 0.835 uIU/mL L=0.360 H=3.740 3014-8 LOINC Social History Type Status Start Date End Date Code Code Syst em Smoking History Former smoker 4128067 SNOMED CT Sex Female Vital Signs Vital Sign Value Unit Mclean Value Mclean Unit Date/Time Recent/Initial? Code Code System Body Mass Index 43.91 kg/m2 02/23/2022 12:23 Initial 96311 -5 LOINC Systolic Blood Pressure 106 mm[Hg] 02/23/2022 16:10 Most Recent 8480- 6 LOINC Diastolic Blood Pressure 63 mm[Hg] 02/23/2022 16:10 Most Recent 8462- 4 LOINC Systolic Blood Pressure 140 mm[Hg] 02/23/2022 12:23 Initial 8480- 6 LOINC Diastolic Blood Pressure 85 mm[Hg] 02/23/2022 12:23 Initial 8462- 4 LOINC Body Surface Area 2.18 m2 02/23/2022 12:23 Initial 3140- 1 LOINC Height 157.480 0 cm 62.00 in 02/23/2022 12:23 Initial 8302- 2 LOINC O2 Saturation 98 % 2021 16:10 Most Recent 75888 -5 LOINC O2 Saturation 100 % 2021 12:23 Initial 98245 -5 LOINC Pulse 73.0 /min 02/23/2022 16:10 Most Recent 8867- 4 LOINC Pulse 87.0 /min 02/23/2022 12:23 Initial 8867- 4 LOINC Respiration 14 /min 02/24/20 16:10 Most Recent 9279- 1 LOINC Respiration 16 /min 02/24/20 12:23 Initial 9279- 1 LOINC Temperature 36.7 Keila 98.1 F 02/24/20 12:23 Initial 8310- 5 LOINC Weight 108.90 kg 240.08 lbs 02/23/2022 12:23 Initial 78881 -7 LOINC Medications Medication Start Date End Date Route Frequency Dose Code Code System Medication Instructions Home Meds Meclizine HCl 25MG Oral Tablet 01/24/2022 02/23/2022 ORAL NEEDED EVERY 8 HOURS 1 TABLET 042707 RxNorm TAKE 1 TABLET ORAL NEEDED EVERY [...] Code Code System CHRONIC PAIN SYNDROME active 94689908 6 SNOMED-CT ANXIETY active 94757292 SNOMED-CT DEPRESSION active 90132522 SNOMED-CT Allergies and Adverse Reactions Allergy Substance Reaction Severity Start Date Concern Status Co de Code System No Known Drug Allergies Active 847206845 SNOMED-CT Plan of Treatment MRI C SPINE W/O CONTRAST 02/06/2023 MRI BRAIN W WO CONTRAST 02/28/2022 MRI BRAIN W/O CONTRAST 02/15/2022 Encounters Encounter Diagnosis Start Date Code Code Sys tem Migraine, unspecified, not i ntractable, without status migrainosus 02/23/2022 SNOMED-CT Personal Care Team Section Performer Name Performer Role Active Date Inactive Da cecilai
--- OUTSIDE RECORDS SUMMARY | 2023-12-13 19:14 | XMS_ITS ---
Author Organization Unknown Address [address] [place] [address] [phone] Phone Care Team Providers Care Hardware Manager Name Role Phone RYAN RUDDY Attending Unavailable RUSSELL JOAQUIN Primary Unavailable Results HIV 1/2 ANTIGEN AND ANTIBODY SCREEN - Collect Date/Time: 01/16/2023 17:16 [facility] ID: [id number] [address] [place] [address], [id number] LOINC: 06027-1 Test Value Unit Reference Range Code Code System Flag HIV 1/2 Antigen andAntibody Negative Negative SYPHILIS SEROLOGY* - Collect Date/Time: 01/16/2023 17:16 [facility] ID: [id number] [address] [place] [address], [id number] LOINC: 13696-1 Test Value Unit Reference Range Code Code System Flag Syphilis Serology Negative Negative HEP B CORE ANTIBODY TOTAL - Collect Date/Time: 01/16/2023 17:16 [facility] ID: [id number] [address] [place] [address], [id number] LOINC: 58450-5 Test Value Unit Reference Range Code Code System Flag Hep B Core Antibody Negative Negative HEP B SURF ANTIGEN* - Collec t Date/Time: 01/16/2023 17:16 [facility] ID: [id number] [address] [place] [address], [id number] LOINC: 5196-1 Test Value Unit Reference Range Code Code System Flag Hep B Surface Ag Negative Negative HEP C ANTIBODY WITH REFLEX P CR - Collect Date/Time: 01/16/2023 17:16 [facility] ID: [id number] [address] [place], [place], [phone] LOINC: 23367-9 Test Value Unit Reference Range Code Code System Flag Hep C Ab w Rfx PCR Negative Negative CHLAMYDIA/GC AMPLIFIED PROBE * - Collect Date/Time: 01/16/2023 17:16 [facility] ID: [id number] [address] [place], [place], [id number] LOINC: 89799-6 Test Value Unit Reference Range Code Code System Flag Chlamydia Result Negative Negative GC Result Negative Negative Social History Type Status Start Date End Date Code Code Syst em Smoking History Former smoker 5261852 SNOMED CT Sex Female Assessment You had [...] Code Code System CHRONIC PAIN SYNDROME active 46966571 6 SNOMED-CT ANXIETY active 74804985 SNOMED-CT DEPRESSION active 35270250 SNOMED-CT Allergies and Adverse Reactions Allergy Substance Reaction Severity Start Date Concern Status Co de Code System No Known Drug Allergies Active 227009397 SNOMED-CT Plan of Treatment MRI C SPINE W/O CONTRAST 02/06/2023 MRI BRAIN W WO CONTRAST 02/28/2022 MRI BRAIN W/O CONTRAST 02/15/2022 Encounters Encounter Diagnosis Start Date Code Code Sys tem Female infertility 01/16/2023 4011757 SNOMED-CT Personal Care Team Section Performer Name Performer Role Active Date Inactive Da cecilia
--- OUTSIDE RECORDS SUMMARY | 2023-12-13 19:14 | XMS_ITS ---
Author Organization Unknown Address [address] [place] [address] [phone] Phone Care Team Providers Care Global Professional Name Role Phone RUSSELL JOAQUIN Attending Unavailable Results TSH THYROID STIMULATING HORM ONE* - Collect Date/Time: 09/21/2022 16:02 [facility] ID: [id number] [address] [place] [address], [address] LOINC: 3014-8 Test Value Unit Reference Range Code Code System Flag TSH 1.328 uIU/mL L=0.360 H=3.740 3014-8 LOINC IRON - Collect Date/Time: 16:02 [facility] ID: [id number] [address] [place] [address], [id number] LOINC: 2498-4 Test Value Unit Reference Range Code Code System Flag IRON 72 ug/dL L=35 H=150 2498-4 LOINC FERRITIN - Collect Date/Time : 09/21/2022 16:02 [facility] ID: [id number] [address] [place] [address], [address] LOINC: 2276-4 Test Value Unit Reference Range Code Code System Flag FERRITIN 57 ng/mL L=8 H=388 2276-4 LOINC Social History Type Status Start Date End Date Code Code Syst em Smoking History Former smoker 5090698 SNOMED CT Sex Female Assessment You had [...] Code Code System CHRONIC PAIN SYNDROME active 04922921 6 SNOMED-CT ANXIETY active 18483202 SNOMED-CT DEPRESSION active 35190682 SNOMED-CT Allergies and Adverse Reactions Allergy Substance Reaction Severity Start Date Concern Status Co de Code System No Known Drug Allergies Active 795496813 SNOMED-CT Plan of Treatment MRI C SPINE W/O CONTRAST 02/06/2023 MRI BRAIN W WO CONTRAST 02/28/2022 MRI BRAIN W/O CONTRAST 02/15/2022 Encounters Encounter Diagnosis Start Date Code Code Sys tem Fatigue 09/21/2022 58902584 SNOMED-CT Personal Care Team Section Performer Name Performer Role Active Date Inactive Da te
--- OUTSIDE RECORDS SUMMARY | 2023-12-13 19:14 | XMS_ITS ---
Author Organization Unknown Address [address] [place] [address] [phone] Phone Care Team Providers Care De Icer Kit Assembler Name Role Phone CASSIE Mas Attending Unavailable RUSSELL JOAQUIN Primary Unavailable Social History Type Status Start Date End Date Code Code Syst em Smoking History Former smoker 6831885 SNOMED CT Sex Female Assessment You had [...] Code Code System CHRONIC PAIN SYNDROME active 00804718 6 SNOMED-CT ANXIETY active 87592877 SNOMED-CT DEPRESSION active 83819790 SNOMED-CT Allergies and Adverse Reactions Allergy Substance Reaction Severity Start Date Concern Status Co de Code System No Known Drug Allergies Active 731910211 SNOMED-CT Plan of Treatment MRI C SPINE W/O CONTRAST 02/06/2023 MRI BRAIN W WO CONTRAST 02/28/2022 MRI BRAIN W/O CONTRAST 02/15/2022 Encounters Encounter Diagnosis Start Date Code Code Sys tem Patellofemoral disorders, right knee 07/20/2022 SNOMED-CT Personal Care Team Section Performer Name Performer Role Active Date Inactive Da te
--- OUTSIDE RECORDS SUMMARY | 2023-12-13 19:14 | XMS_ITS ---
Author Organization Unknown Address [address] [place] [address] [phone] Phone Care Team Providers Care Law Enforcement Instructor Name Role Phone MARYCARMEN RODRIGUEZ Attending Unavailable RUSSELL JOAQUIN Primary Unavailable Social History Type Status Start Date End Date Code Code Syst em Smoking History Former smoker 5064220 SNOMED CT Sex Female Assessment You had [...] Code Code System CHRONIC PAIN SYNDROME active 75044308 6 SNOMED-CT ANXIETY active 43567391 SNOMED-CT DEPRESSION active 80217468 SNOMED-CT Allergies and Adverse Reactions Allergy Substance Reaction Severity Start Date Concern Status Co de Code System No Known Drug Allergies Active 234550607 SNOMED-CT Plan of Treatment MRI C SPINE W/O CONTRAST 02/06/2023 MRI BRAIN W WO CONTRAST 02/28/2022 MRI BRAIN W/O CONTRAST 02/15/2022 Encounters Encounter Diagnosis Start Date Code Code Sys tem Migraine without aura, not refractory 09/06/2022 425 831425 SNOMED-CT Personal Care Team Section Performer Name Performer Role Active Date Inactive Da te
--- OUTSIDE RECORDS SUMMARY | 2023-12-13 19:15 | XMS_ITS | Encounter Summary ---
Author Organization [facility] Address [address] [place] [address] Care Team Providers Care Insurance Producer Name Role Phone Janneth Shelton Primary Care Provider Unavailab Alee Obrien NP Primary Care Provider Encounter Details Date Type Department Care Team (Latest Contact Info) Description 04/11/2019 Lab Requisition [facility] Pathology & Laboratory Medicine - [facility] [address] [place] [address] Alee Franco, DIRECTOR OF CONVENTION SERVICES [address] [place] [phone] Encounter for gynecological examination (general) (routine) without abnormal findings Social History Tobacco Use Types Packs/Day Years Used Date Smoking Tobacco: Never Assessed Sex and Gender Information Value Date Recorded Sex Assigned at Not on file Gender Identity Female 01/08/2023 10:18 EDT Sexual Orientation Not on file documented as of this encounter Plan of Treatment Not on file documented as of this encounter Procedures Procedure Name Priority Date/Time Associated Diagnosis Comments PAP TEST Today 04/08/2019 8:15 EST Encounter for gynecological examination (general) (routine) without abnormal findings documented in this encounter Results * PAP TEST (04/08/2019 8:15 EST) Specimens A. Cervix and/or Endocervix, , ThinPrep Imaging System with Manual Evaluation 04/15/2019 11:49 EST [facility] Specimen Adequacy Satisfactory for Evaluation - transformation zone component absent 04/15/2019 11:49 EST [facility] General Categorization Negative for intraepithelial lesion or malignancy 04/15/2019 11:49 EST [facility] Attestation . 04/15/2019 11:49 EST [facility] at 1149 Clinical History SEE ORDER COMMENTS 04/15/2019 11:49 EST [facility] Scanned Images 04/15/2019 11:49 EST [facility] Papanicolaou smear specimen (specimen) CERVIX UTERI STRUCTURE / Unknown 04/08/2019 8:15 EST 04/11/2019 13:58 EST Alee Franco NP PATHOLOGY ORDERABLES [facility] [address] [place] [address] documented in this encounter Visit Diagnoses Diagnosis Encounter for gynecological examination (general) (routine) without abnormal findings documented in this encounter Care Teams Insurance Producer Relationship Specialty Start Date End Date Janneth Shelton PA PCP - General 10/03/12 01/07/23 Alee Franco NP [address] [place] [address] PCP - General 01/08/23 documented as of this encounter
--- OUTSIDE RECORDS SUMMARY | 2023-12-13 19:15 | XMS_ITS | Encounter Summary ---
Author Organization [facility] Address [address] [place] [address] Care Team Providers Care Relief Mate Name Role Phone Johnhemant Alee Hemant ELEMENTARY MATH TUTOR Primary Care Provider [phone] Encounter Details Date Type Department Care Team (Late st Contact Info) Description 01/16/2023 Lab Requisition [facility] Pathology & Laboratory Medicine - [facility] [address] [place] [address] Outr Resulting Lab, Provider Social History Tobacco Use Types Packs/Day Years Used Date Smoking Tobacco: Never Assessed Sex and Gender Information Value Date Recorded Sex Assigned at Not on file Gender Identity Female 01/08/2023 10:18 EDT Sexual Orientation Not on file documented as of this encounter Plan of Treatment Not on file documented as of this encounter Procedures Procedure Name Priority Date/Time Associated Diagnosis Comments HEPATITIS B SURFACE ANTIGEN Routine 01/16/2023 17:16 EDT documented in this encounter Results * HEPATITIS B SURFACE ANTIGEN (01/16/2023 17:16 EDT) Hep B Surface Ag Negative Negative 01/17/2023 10:28 EDT [facility] Blood VENOUS BLOOD / Unknown 01/16/2023 17:16 EDT 01/16/2023 21:28 EDT Provider Outr Resulting Lab CHEMISTRY & BLOOD GAS ORDERABLES [facility] [address] [place] [address] documented in this encounter Visit Diagnoses Not on filedocumented in this encounter Care Teams Relief Mate Relationship Specialty Start Date End Date Alee Franco NP [address] [place] [phone] PCP - General 01/08/23 documented as of this encounter
--- OUTSIDE RECORDS SUMMARY | 2023-12-13 19:15 | XMS_ITS | Encounter Summary ---
Author Organization [facility] Address [address] [place] [address] Care Team Providers Care Production Support Manager Name Role Phone Janneth Shelton Primary Care Provider Alee Enamorado COMPLEX MANAGER Primary Care Provider [phone] Encounter Details Date Type Department Care Team (Late st Contact Info) Description 09/21/2022 Lab Requisition [facility] Pathology & Laboratory Medicine - [facility] [address] [place] [address] Outr Resulting Lab, Provider Social History Tobacco [...] Procedure Name Priority Date/Time Associated Diagnosis Comments T4 Routine 09/21/2022 16:02 EDT documented in this encounter Results * T4 (09/21/2022 16:02 EDT) T4 7.3 5.5 - 11.0 ug/dL 09/21/2022 21:56 EDT [facility] Blood VENOUS BLOOD / Unknown 09/21/2022 16:02 EDT 09/21/2022 21:26 EDT Provider Outr Resulting Lab CHEMISTRY & BLOOD GAS ORDERABLES [facility] [address] [place] [address] documented in this encounter Visit Diagnoses Not on filedocumented in this encounter Care Teams Production Support Manager Relationship Specialty Start Date End Date Janneth Shelton PA PCP - General 10/03/12 01/07/23 Alee Franco, RUTHY [address] [place] [phone] PCP - General 01/08/23 documented as of this encounter
--- OUTSIDE RECORDS SUMMARY | 2023-12-13 19:15 | XMS_ITS ---
Author Organization Unknown Address [address] [place] [phone] Phone Care Team Providers Care Marine Fisheries Technician Name Role Phone RUSSELL JOAQUIN Attending Unavailable Results MR BILL LEONARDO CONTRAST - Comp leted: 02/06/2023 12:49 LOINC: [facility] [place], [place] [address] PACS WALL INSULATION SPRAYER REPORT Patient Name: ANY RIVAS MRN: Sex: : Age: [id number] F 1995 27 Account: Accession: Admit: StayType: [id number] 02/06/2023 O/P Ordered: Order ID: Submitted: Ordering Provider: 02/06/2023 10:47 [id number] EMANI RUGGIERO Completed: Technologist: Resulted: 02/06/2023 10:47 02/06/2023 12:05 Study Description: MR BILL LEONARDO CONTRAST Study Reason: Neck Pain Technique: Multiplanar multisequence MRI was performed. Comparison: None. FINDINGS: Bones: The vertebral body heights are well maintained. Alignment is satisfactory. The signal characteristics are unremarkable. Cord: It is of normal size and signal intensity. There is no evidence of tonsillar ectopia or Chiari malformation C2-3: No disc herniations or bulges are present. No central spinal canal or neural foraminal stenosis. C3-4: No disc herniations or bulges are present. No central spinal canal or neural foraminal stenosis. C4-5: No disc herniations or bulges are present. No central spinal canal or neural foraminal stenosis. C5-6: There is a small central disc herniation. No central spinal canal or neural foraminal stenosis. C6-7: No disc herniations or bulges are present. No central spinal canal or neural foraminal stenosis. C7-T1: No disc herniations or bulges are present. No central spinal canal or neural foraminal stenosis. Soft tissues: The paraspinal soft tissues are unremarkable. IMPRESSION: 1. No evidence of significant spinal stenosis or neuroforaminal narrowing. 2. Small central disc herniation at C5-C6 without evidence of central spinal canal or neuroforaminal stenosis. Report Digitally Signed by Warren Pino on 02/06/2023 12:05 PM EDT Social History Type Status Start Date End Date Code Code Syst em Smoking History Former smoker 1284977 SNOMED CT Sex Female Assessment You had [...] Code Code System CHRONIC PAIN SYNDROME active 63749295 [id number] SNOMED-CT ANXIETY active 25049341 SNOMED-CT DEPRESSION active 17119681 SNOMED-CT Allergies and Adverse Reactions Allergy Substance Reaction Severity Start Date Concern Status Co de Code System No Known Drug Allergies Active 151542939 SNOMED-CT Plan of Treatment MRI C SPINE W/O CONTRAST 02/06/2023 MRI BRAIN W WO CONTRAST 02/28/2022 MRI BRAIN W/O CONTRAST 02/15/2022 Encounters Encounter Diagnosis Start Date Code Code Sys tem Other cervical disc displacement at C5-C6 level 2022 SNOMED-CT Personal Care Team Section Performer Name Performer Role Active Date Inactive Da te
--- OUTSIDE RECORDS SUMMARY | 2023-12-13 19:15 | XMS_ITS | Encounter Summary ---
Author Organization [facility] Address [address] [place] [address] Care Team Providers Care Label Fuser Tender Name Role Phone Joan Alee Malcom SOLE CONDITIONER Primary Care Provider Encounter Details Date Type Department Care Team (Late st Contact Info) Description 01/16/2023 Lab Requisition [facility] Pathology & Laboratory Medicine - [facility] [address] [place] [address] Outr Resulting Lab, Provider Social History Tobacco [...] Procedure Name Priority Date/Time Associated Diagnosis Comments CHLAMYDIA/N. GONORRHOEAE AMPLIFIED NUCLEIC ACID Routine 01/16/2023 17:16 EDT documented in this encounter Results * CHLAMYDIA/N. GONORRHOEAE AMPLIFIED RNA (01/16/2023 17:16 EDT) Neisseria gonorrhoeae Result Negative Negative 01/17/2023 14:13 EDT [facility] Chlamydia trachomatis Result Negative Negative 01/17/2023 14:13 EDT [facility] Urine URINE / Unknown 01/16/2023 1 7:16 EDT 01/16/2023 22:37 EDT Narrative [facility] - 01/17/2023 14:13 EDT A first catch urine specimen is acceptable for detection of Gonorrhea and Chlamydia, but might detect up to 10% fewer infections when compared with vaginal and endocervical swab samples. Provider Outr Resulting Lab MICROBIOLOGY - GENERAL ORDERABLES [facility] [address] [place] [address] documented in this encounter Visit Diagnoses Not on filedocumented in this encounter Care Teams Label Fuser Tender Relationship Specialty Start Date End Date Alee Franco NP [address] [place] [address] PCP - General 01/08/23 documented as of this encounter
--- OUTSIDE RECORDS SUMMARY | 2023-12-13 19:15 | XMS_ITS | Encounter Summary ---
Author Organization [facility] Address [address] [place] [address] Care Team Providers Care Global Safety Officer Name Role Phone Johnhemant Alee Hemant OUTDOOR STUDIES PROFESSOR Primary Care Provider [phone] Encounter Details Date Type Department Care Team (Late st Contact Info) Description 01/16/2023 Lab Requisition [facility] Pathology & Laboratory Medicine - [facility] [address] [place] [address] Outr Resulting Lab, Provider Social History Tobacco [...] Name Priority Date/Time Associated Diagnosis Comments HEPATITIS C AB W REFLEX TO HCV RNA BY PCR Routine 01/16/2023 17:16 EDT documented in this encounter Results * HEPATITIS C AB W REFLEX TO HCV RNA BY PCR (01/16/2023 17:16 EDT) Hep C Antibody Negative Negative 01/17/2023 10:15 EDT [facility] Blood VENOUS BLOOD / Unknown 01/16/2023 17:16 EDT 01/16/2023 21:28 EDT Provider Outr Resulting Lab CHEMISTRY & BLOOD GAS ORDERABLES [facility] [address] [place] [address] documented in this encounter Visit Diagnoses Not on filedocumented in this encounter Care Teams Global Safety Officer Relationship Specialty Start Date End Date Alee Franco NP [address] [place] [phone] PCP - General 01/08/23 documented as of this encounter
--- OUTSIDE RECORDS SUMMARY | 2023-12-13 19:15 | XMS_ITS | Encounter Summary ---
Author Organization [facility] Address [address] [place] [address] Care Team Providers Care Pluck Trimmer Name Role Phone Alee Franco BOTTLE BLOWING MACHINE TENDER Primary Care Provider [phone] Reason for Visit * Reason Comments Neck Pain * Consult (Routine) - Authorization Not Required Specialty Diagnoses / Procedures Referred By Tomy larkin Referred To Contact Pain Medicine Diagnoses Chronic neck pain Complex regional pain syndrome I Alee Franco, BOTTLE BLOWING MACHINE TENDER [address] [place] [address] [facility] [address] [place] [address] Referral ID Status Reason Start Date Expiration Date Visits Requested Visits Authorized [id number] Authorization Not Required 1 1 Encounter Details Date Type Department Care Team (Latest Contact Info) Description 01/25/2023 14:00 EDT Initial consult [facility] Interventional Pain [address] [place] [address] Imtiaz Chatterjee MD [address] [address] [place] [address] Neck pain (Primary Dx) Social History Tobacco Use Types Packs/Day Years Used Date Smoking Tobacco: Never Assessed Sex and Gender Information Value Date Recorded Sex Assigned at Not on file Gender Identity Female 01/08/2023 10:18 EDT Sexual Orientation Not on file documented as of this encounter Last Filed Vital Signs Vital Sign Reading Time Taken Comments Blood Pressure 107/59 01/25/2023 1329 EDT Pulse 76 01/25/2023 1329 EDT Temperature - - Respiratory Rate 17 01/25/2023 1329 EDT Oxygen Saturation 100% 01/25/2023 1329 EDT Inhaled Oxygen Concentration - - Weight - - Height - - Body Mass Index - - documented in this encounter Progress Notes * Warren Arce, DO - 01/25/2023 1400 EDT [facility] OP PAIN CONSULT Patient Name: Shruthi Rosenberg Date of Service: 01/25/2023 Chief Complaint: No chief complaint on file. Physician Requesting Consultation: Alee Franco History of Present Illness: Patient presents at the request of Alee Franco for initial evaluation and treatment recommendations of the patient's pain. Ms. Shruthi Rosenberg is a 27 y.o. female with no significant past medical history that presents to the pain clinic concerning her chronic neck pain. 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 Initially thought to be carpal tunnel she was put in a wrist splint for months which made the pain worse. Pain had traveled upwards. She had stellate ganglion block in the past which was helpful and had cervical SCS however unfortunately got infected despite good relief. She also had a botox injection in her scapular area which did help. Today her pain is in her neck and right shoulder, radiates down into the arm. Feels a tight sensation in the upper trapezius. Laying down relieves the pain. Nothing in particular makes it worse. Always a low level of pain and seems to worsen throughout the day. Has done multiple rounds of physical therapy and was on chronic pain medications including hydromorphone, gabapentin, ibuprofen. Currently taking cymbalta which helps her mood to some degree and pain to a lesser degree. Also taking celebrex. Therapeutic measures that have been trialed include: 7-8 Stellate ganglion injections ([facility]) Upper trapezius botox injection Patient currently denies any bowel and/or bladder incontinence, progressive weakness, saddle numbness, unexplained fever, trauma or unexplained weight loss. History reviewed. No pertinent past medical history. Allergies: No Known Allergies Physical Exam: Vitals: BP 107/59 (BP Cuff Location: Left arm, BP Patient Position: Sitting, BP Cuff Sizes: Adult, long) Pulse 76 Resp 17 SpO2 100% General: Patient is alert and oriented x3, no acute distress Skin: clear, warm, dry and intact and no rashes, bruises or petechiae noted Cervical Spine: tenderness elicited upon palpation in the upper trapezius and cervical paraspinals.+ pain elicited upon facet loading Upper Extremity: strength 5/5, sensory bilaterally equal to light touch, negative spurling's test Imaging: no imaging. Assessment: 1. Neck pain Plan: Ms. Shruthi Rosenberg is a 27 y.o. female with past medical history significant for CRPS, fibromyalgiathat presents to the pain clinic for initial consultation and treatment recommendations concerning her chronic neck pain. Given the patient's symptomatology, physical exam findings and imaging results, we feel that the patient would most likely benefit from cervical radiographs to better evaluate for cervical arthropathy. She has a referral to get this done. If there is evidence of cervical spondylosis she may benefit from cervical MBB/RFA. All risks, benefits, and alternatives were thoroughly explained to Ms. Shruthi Rosenberg who verbally communicated understanding of the management plan. Warren Arce DO PGY-5 Pain Medicine Fellow Attending attestation: I saw and examined the patient with the pain fellow/resident. I agree with the findings and plan of care documented in this note. Imtiaz Chatterjee MD 01/25/2023 documented in this encounter Plan of Treatment Not on file documented as of this encounter Visit Diagnoses Diagnosis Neck pain- Primary Cervicalgia documented in this encounter Historical Medications * This list may reflect changes made after this encounter. Medication Sig Dispensed Refills Start Date End Date omeprazole (PRILOSEC) 40 mg capsule Take 1 Capsule by mouth daily. 11/11/2022 propRANolol (INDERAL LA) 80 mg SR capsule Take 1 Capsule by mouth daily. 01/02/2023 DULoxetine (CYMBALTA) 60 mg capsule take one capsule by mouth every evening 01/02/2023 buPROPion (WELLBUTRIN SR) 150 mg SR tablet Take 1 Tablet by mouth 2 times daily. 11/02/2022 DULoxetine (CYMBALTA) 20 mg delayed release capsule 30 mg. 06/08/2022 added in this encounter Care Teams Pluck Trimmer Relationship Specialty Start Date End Date Alee Franco, RUTHY [address] [place] [address] PCP - General 01/08/23 documented as of this encounter
--- OUTSIDE RECORDS SUMMARY | 2023-12-13 19:15 | XMS_ITS | Encounter Summary ---
Author Organization [facility] Address [address] [place] [address] Care Team Providers Care Wrapper Sizer Name Role Phone JohnAlee marcos Malcom REFINERY PIPELINE OPERATOR Primary Care Provider [phone] Reason for Visit * Reason Comments Neck Pain TPI * Prior Authorization (Routine) - Authorization Not Required Specialty Diagnoses / Procedures Referred By Contact Referred To Contact Anesthesiology / Pain Medicine Diagnoses Myalgia, other site right paraspinal cervical TPI / pa pending Procedures NM INJECTION SINGLE/DIRECTOR UNIVERSITY TRIGGER POINT 1/2 MUSCLES PAIN CLINIC PROCEDURE [facility] [address] [place] [address] Imtiaz Chatterjee MD [address] [employer] [address] [address] Referral ID Status Reason Start Date Expiration Date Visits Requested Visits Authorized [id number] Authorization Not Required 05/25/2023 1 1 Encounter Details Date Type Department Care Team (Latest Contact Info) Description 08/08/2023 13:[address] [facility] [place] [facility] Interventional Pain [address] [place] [address] Imtiaz Chatterjee MD [address] [place] [phone] Myofascial pain (Primary Dx) Social History Tobacco Use Types Packs/Day Years Used Date Smoking Tobacco: Never Assessed Sex and Gender Information Value Date Recorded Sex Assigned at Not on file Gender Identity Female 01/08/2023 10:18 EDT Sexual Orientation Not on file documented as of this encounter Last Filed Vital Signs Vital Sign Reading Time Taken Comments Blood Pressure 102/52 08/08/2023 1315 EDT Pulse 52 08/08/2023 1315 EDT Temperature 36.3 ??C (97.3 ??F) 08/08/2023 1233 EDT Respiratory Rate 16 08/08/2023 1315 EDT Oxygen Saturation 100% 08/08/2023 1233 EDT Inhaled Oxygen Concentration - - Weight - - Height - - Body Mass Index - - documented in this encounter Patient Instructions * Patient Instructions* Keesha Prado RN - 08/08/2023 13:30 EDT [facility] [address] [address] Patient Instructions You have had your right Trigger Point Injection, trapezius. The purpose of this procedure has been to place medication which may help relieve your pain. Steroid may be used to decrease the swelling and nerve irritation which may be causing your pain. The following information should help you over the next few days regarding what you may expect. Please take it easy for the rest of today. DO NOT drive a car for the remainder of the day. If you feel sore where the needle(s) entered for the block or develop a flare-up of pain over the next few days, please use ice on the area. You may leave the ice on for up to 20 minutes at a time. Do not use heat, as this may cause swelling. As long as your primary doctor has indicated no restrictions, you may take a mild pain medicine, such as acetaminophen (Tylenol), ibuprofen (Advil, Nuprin, Motrin IB, etc.) or aspirin, if needed. The steroid injection usually takes a few days to become effective. On average, you may notice somerelief in 3 -5 days. However, it may take up to 10 - 14 days to know whether the injection was helpful. If the block causes numbness/weakness, it should wear off within a few hours. If the area that the needle(s) were inserted becomes hot, red, swollen, or increasingly tender, or if you develop a fever (100.5 or greater) or chills along with these symptoms, please call our office immediately. If you develop increasingly severe neck/back pain, continued numbness or weakness of the arms, please call our office immediately. Instructions for follow-up If you have any questions about your block, please call Patient Education Topic: Method: Handout and Verbal Taught to: Patient Barriers: None Outcomes: independent and verbalized understanding Signature: Keesha Rahman RN documented in this encounter Progress Notes * Gloria Gusman MA - 08/08/2023 1330 EDT [facility] Rooming Note Does patient have a Pathology Supervisor? yes Is patient NPO? (Solids since midnight & liquids for 4 hrs) Blood Thinners: Is patient on Blood Thinners? no If yes, taking? If stopped, who authorized stopping? Related comments: Infections: Any recent infections, fever of illnesses? no If on antibiotics, is it 7-10 days past the date of completion of antibiotics? no : (for females of child-bearing age) Is there a chance current ? no Do you have any type of implanted device? no Vaccination: Have you had or are you planning to have a vaccination in the 2 weeks? no Other: no * Imtiaz Chatterjee MD - 08/08/2023 1330 EDT Patient Name: Shruthi Rosenberg : 1995 Date of Service: 08/08/2023 Requesting physician: no referring provider Tractor Trailer Truck Driver: Itmiaz Chatterjee MD Cherry Grower: none Procedure: Right Trapezius Trigger point injection Interval History: Patient presents at the request of no referring provider for continued evaluation and treatment recommendations of the patient's pain. Shruthi Rosenberg primarily localizes the pain at her neck right side. She describes the pain as sharpin character. Patient currently denies any progressive weakness, unexplained fever, trauma or unexplained weight loss. Details of the current complaint are thoroughly described in the consultation notes from no referring provider's last encounter including pain onset, location, course, workup, therapeutic attempts, and associated functional limitations. The patient reports no recent changes in the character, quality, or distribution of the pain. There are no recent onset of new associated symptoms such as changes in strength, sensation, or bladder control. Injection History: 08/08/2023: Trigger point injection right trapezius X2 7-8 Stellate ganglion injections ([facility] [place]) Upper trapezius botox injection Allergies: No Known Allergies Review of Systems: Negative for any fever, chills, nausea/vomiting, headaches, chest pain, palpitations, shortness of breath, bladder/bowel incontinence. No easy bruising, bleeding, anti-coagulation or known recent infections. Physical Exam: Vitals: BP 102/52 (BP Cuff Location: Right arm, BP Patient Position: Supine, BP Cuff Sizes: Adult, long) Pulse 52 Temp 36.3 ??C (97.3 ??F) (Tympanic) Resp 16 SpO2 100% General: Patient is alert and oriented, no acute distress Lungs: symmetric chest rise, no evidence of labored breathing Skin: clear, warm, dry and intact and no rashes, bruises or petechiae noted Musculoskeletal: Gait: patient ambulates independently , steady gait no obvious scoliosis or abnormal curvature of the spine Assessment: 1. Myofascial pain Plan: Ms. Shruthi Rosenberg is a 27 y.o. female that presents to the pain clinic to undergo trigger point injection in regards to her chronic muscular pain. All risks, benefits, and alternatives were thoroughly explained to Ms. Shruthi Rosenberg who verbally communicated understanding of the management plan. Proceed with trigger point injection Followup: as needed for routine follow up PROCEDURE: Informed consent was obtained after all questions were answered. Patient was placed in the seated position. Points of maximum tenderness were identified at the right trapezius described above and marked. A weber moment was performed with everyone present to verify identification of the patient, allergies and procedure to be performed. The skin was prepped with a sterile prep. . Then a mixure of 4 cc's of 1% lidocaine, 40 mg of depomedrol was prepared. A total of 5 cc's were used in equally divided doses for 2 trigger points. A local taut response to the target with the needle insertion was verified. The patient tolerated the procedure well other than a little nausea post procedure and was discharged to home in stable condition. Imtiaz Chatterjee MD 08/08/2023 12:34 * Keesha Prado, RN - 08/08/2023 1330 EDT ATTENTION: An active Time-Out initiated by the Provider requires that all members of the proceduralsupport team are present and must stop activity until the Time-Out is completed. The Nurse will have in their possession the signed consent to compare to the verbal verification ofthe items below: [Verified] Patient identifier #1: Full Name [Verified] Patient Identifier #2: Date of [Verified] No allergy to sterile prep products, steroids, local anesthetics, band-aids, or contrastdye [Verified] Full team and patient verification of location of pain and procedure to be performed [Verified] Site marked (Region and/or Laterality) [Verified] Presence of Implantable Devices [Verified] Safety devices are in place (Grounding pad, X-rays available, and/or Magnet) [Verified] Consent signed and matches planned procedure and site marking [Verified] Active verbal communication by the entire procedural team was completed. documented in this encounter Plan of Treatment Not on file documented as of this encounter Visit Diagnoses Diagnosis Myofascial pain- Primary Mylagia and myositis, unspecified documented in this encounter Administered Medications Inactive Administered Medications - up to 3 most recent administrations Medication Order MAR Action Action Date Dose Rate Site methylPREDNISolone ACETATE (DEPO-MEDROL) injection 40 mg 40 mg, infiltration, NOW X1, 1 dose, On Mon08/08/23 at 1345, Routine Given by Other 08/08/2023 13:15 EDT 40 mg documented in this encounter Historical Medications * This list may reflect changes made after this encounter. Medication Sig Dispensed Refills Start Date End Date celecoxib (CELEBREX) 100 mg capsule Take 1 Capsule by mouth 2 times daily. 08/01/2023 busPIRone (BUSPAR) 10 mg tablet Take 1 Tablet by mouth 2 times daily. 07/28/2023 added in this encounter Care Teams Wrapper Sizer Relationship Specialty Start Date End Date Alee Franco NP [address] [place] [address] PCP - General 01/08/23 documented as of this encounter
--- OUTSIDE RECORDS SUMMARY | 2023-12-13 19:15 | XMS_ITS | Encounter Summary ---
Author Organization [facility] Address [address] [place] [address] Care Team Providers Care Rail Walker Name Role Phone Johnhemant Alee Hemant METAL FURNITURE GLAZIER Primary Care Provider [phone] Encounter Details Date Type Department Care Team (Late st Contact Info) Description 01/16/2023 Lab Requisition [facility] Pathology & Laboratory Medicine - [address] [address] Outr Resulting Lab, Provider Social History Tobacco [...] Procedure Name Priority Date/Time Associated Diagnosis Comments SYPHILIS SEROLOGY Routine 01/16/2023 17: 16 EDT documented in this encounter Results * SYPHILIS SEROLOGY (01/16/2023 17:16 EDT) Syphilis Serology Negative Negative 01/17/2023 11:21 EDT [facility] Blood VENOUS BLOOD / Unknown 01/16/2023 17:16 EDT 01/16/2023 21:28 EDT Provider Outr Resulting Lab IMMUNOLOGY A ND SEROLOGY ORDERABLES [facility] [address] [place] [address] documented in this encounter Visit Diagnoses Not on filedocumented in this encounter Care Teams Rail Walker Relationship Specialty Start Date End Date Alee Franco NP [address] [place] [address] PCP - General 01/08/23 documented as of this encounter
--- OUTSIDE RECORDS SUMMARY | 2023-12-13 19:15 | XMS_ITS | Encounter Summary ---
Author Organization [facility] Address [address] [place] [address] Care Team Providers Care Shopping Centre Manager Name Role Phone Janneth Shelton Primary Care Provider Unavailab Alee Obrien CLERICAL SPECIALIST Primary Care Provider [phone] Encounter Details Date Type Department Care Team (Late st Contact Info) Description 03/04/2020 Lab Requisition [facility] Pathology & Laboratory Medicine - [facility] [address] [place] [address] Outr Resulting Lab, Provider Social History Tobacco Use Types Packs/Day Years Used Date Smoking Tobacco: Never Assessed Sex and Gender Information Value Date Recorded Sex Assigned at Not on file Gender Identity Female 01/08/2023 10:18 EDT Sexual Orientation Not on file documented as of this encounter Plan of Treatment Not on file documented as of this encounter Visit Diagnoses Not on filedocumented in this encounter Care Teams Shopping Centre Manager Relationship Specialty Start Date End Date Janneth Shelton PA PCP - General 10/03/12 01/07/23 Alee Franco, CLERICAL SPECIALIST [address] [place] [phone] PCP - General 01/08/23 documented as of this encounter
--- OUTSIDE RECORDS SUMMARY | 2023-12-13 19:15 | XMS_ITS | Referral Summary ---
Author Organization [facility] Address [address] [place] [address] Care Team Providers Care Fork Operator Name Role Phone Joan Alee العراقي SPECIAL EDUCATION SUPERVISOR Primary Care Provider [phone] Allergies No known active allergies Medications Medication Sig Dispensed Refills Start Date End Date Status DULoxetine (CYMBALTA) 20 mg delayed release capsule 30 mg. 06/08/2022 Active buPROPion (WELLBUTRIN SR) 150 mg SR tablet Take 1 Tablet by mouth 2 times daily. 11/02/2022 Active DULoxetine (CYMBALTA) 60 mg capsule take one capsule by mouth every evening 01/02/2023 Active propRANolol (INDERAL LA) 80 mg SR capsule Take 1 Capsule by mouth daily. 01/02/2023 Active omeprazole (PRILOSEC) 40 mg capsule Take 1 Capsule by mouth daily. 11/11/2022 Active busPIRone (BUSPAR) 10 mg tablet Take 1 Tablet by mouth 2 times daily. 07/28/2023 Active celecoxib (CELEBREX) 100 mg capsule Take 1 Capsule by mouth 2 times daily. 08/01/2023 Active Active Problems Problem Noted Date Diagnosed Date Neck pain 01/25/2023 Social History Tobacco Use Types Packs/Day Years Used Date Smoking Tobacco: Never Assessed Sex and Gender Information Value Date Recorded Sex Assigned at Not on file Gender Identity Female 01/08/2023 10:18 EDT Sexual Orientation Not on file Last Filed Vital Signs Vital Sign Reading Time Taken Comments Blood Pressure 102/52 08/08/2023 1315 EDT Pulse 52 08/08/2023 1315 EDT Temperature 36.3 ??C (97.3 ??F) 08/08/2023 1233 EDT Respiratory Rate 16 08/08/2023 1315 EDT Oxygen Saturation 100% 08/08/2023 1233 EDT Inhaled Oxygen Concentration - - Weight - - Height - - Body Mass Index - - Plan of Treatment Not on file Procedures Procedure Name Priority Date/Time Associated Diagnosis Comments HEPATITIS C AB W REFLEX TO HCV RNA BY PCR Routine 01/16/2023 17:16 EDT from Last 3 Months or Most Recently Relevant to Health Maintenance Results * HEPATITIS C AB W REFLEX TO HCV RNA BY PCR (01/16/2023 17:16 EDT) Hep C Antibody Negative Negative 01/17/2023 10:15 EDT [facility] Blood VENOUS BLOOD / Unknown 01/16/2023 17:16 EDT 01/16/2023 21:28 EDT Provider Outr Resulting Lab CHEMISTRY & BLOOD GAS ORDERABLES [facility] [address] [place] [address] from Last 3 Months or Most Recently Relevant to Health Maintenance Care Teams Fork Operator Relationship Specialty Start Date End Date Alee Franco NP [address] [place] [phone] PCP - General 01/08/23
--- OUTSIDE RECORDS SUMMARY | 2023-12-13 19:15 | XMS_ITS | Encounter Summary ---
Author Organization [facility] Address [address] [place] [address] Care Team Providers Care Dissolver Operator Name Role Phone Johnhemant Alee Hemant PLASTIC TOOL MAKER Primary Care Provider [phone] Reason for Referral * Laboratory Services (Routine/Next Available) - New Request Specialty Diagnoses / Procedures Referred By Contac t Referred To Contact Diagnoses Routine screening for STI (sexually transmitted infection) Procedures HEPATITIS C AB W REFLEX TO HCV RNA BY PCR Regina Lewis DO Referral ID Status Reason Start Date Expiration Date V isits Requested Visits Authorized [id number] New Request 01/16/2023 1 1 * Laboratory Services (Routine/Next Available) - New Request Specialty Diagnoses / Procedures Referred By Contac t Referred To Contact Diagnoses Routine screening for STI (sexually transmitted infection) Procedures HIV 1/2 ANTIGEN AND ANTIBODY, 4TH GENERATION Regina Lewis DO Referral ID Status Reason Start Date Expiration Date V isits Requested Visits Authorized [id number] New Request 01/16/2023 1 1 * Laboratory Services (Routine/Next Available) - New Request Specialty Diagnoses / Procedures Referred By Contac t Referred To Contact Diagnoses Routine screening for STI (sexually transmitted infection) Procedures SYPHILIS SEROLOGY Regina Lewis DO Referral ID Status Reason Start Date Expiration Date V isits Requested Visits Authorized [id number] New Request 01/16/2023 1 1 * Laboratory Services (Routine/Next Available) - New Request Specialty Diagnoses / Procedures Referred By Contac t Referred To Contact Diagnoses Routine screening for STI (sexually transmitted infection) Procedures HEPATITIS B CORE ANTIBODY (TOTAL) Regina Lewis DO Referral ID Status Reason Start Date Expiration Date V isits Requested Visits Authorized [id number] New Request 01/16/2023 1 1 * Laboratory Services (Routine/Next Available) - New Request Specialty Diagnoses / Procedures Referred By Contac t Referred To Contact Diagnoses Routine screening for STI (sexually transmitted infection) Procedures HEPATITIS B SURFACE ANTIGEN Regina Lewis DO Referral ID Status Reason Start Date Expiration Date V isits Requested Visits Authorized [id number] New Request 01/16/2023 1 1 Encounter Details Date Type Department Care Team (Late st Contact Info) Description 01/09/2023 Orders Only [facility] [address] [address] Vika Nguyen RN Female infertility (Primary Dx); Routine screening for STI (sexually transmitted infection) Social History Tobacco Use Types Packs/Day Years Used Date Smoking Tobacco: Never Assessed Sex and Gender Information Value Date Recorded Sex Assigned at Not on file Gender Identity Female 01/08/2023 10:18 EDT Sexual Orientation Not on file documented as of this encounter Miscellaneous Notes * Addendum Note - Ayad Sevilla RN - 01/09/2023 1542 EDTAddended by: AYAD SEVILLA on: 01/16/2023 11:16 Modules accepted: Orders documented in this encounter Plan of Treatment Scheduled Orders Name Type Priority Associated Diagnoses Orde r Schedule PROFILE IVF NON DONOR Lab Routine Female infertility Expected: 01/09/2023 (Approximate), Expires: 01/10/2024 CHLAMYDIA/N. GONORRHOEAE AMPLIFIED RNA Microbiology Routine Female infertility Expected: 01/09/2023 (Approximate), Expires: 01/10/2024 HEPATITIS B SURFACE ANTIGEN Lab Routine Routine screening for STI (sexually transmitted infection) Expected: 01/16/2023 (Approximate), Expires: 01/16/2024 HEPATITIS B CORE ANTIBODY (TOTAL) Lab Routine Routine screening for STI (sexually transmitted infection) Expected: 01/16/2023 (Approximate), Expires: 01/16/2024 SYPHILIS SEROLOGY Lab Routine Routine screening for STI (sexually transmitted infection) Expected: 01/16/2023 (Approximate), Expires: 01/16/2024 HIV 1/2 ANTIGEN AND ANTIBODY, 4TH GENERATION Lab Routine Routine screening for STI (sexually transmitted infection) Expected: 01/16/2023 (Approximate), Expires: 01/16/2024 HEPATITIS C AB W REFLEX TO HCV RNA BY PCR Lab Routine Routine screening for STI (sexually transmitted infection) Expected: 01/16/2023 (Approximate), Expires: 01/16/2024 documented as of this encounter Visit Diagnoses Diagnosis Female infertility- Primary Female infertility of unspecified origin Routine screening for STI (sexually transmitted infection) Screening examination for venereal disease documented in this encounter Care Teams Dissolver Operator Relationship Specialty Start Date End Date Alee Franco NP [address] [place] [phone] PCP - General 01/08/23 documented as of this encounter
--- OUTSIDE RECORDS SUMMARY | 2023-12-13 19:15 | XMS_ITS | Encounter Summary ---
Author Organization [facility] Address [address] [place] [address] Care Team Providers Care Family Manager Name Role Phone Janneth Shelton Primary Care Provider Alee Enamorado EDITORIAL CLERK Primary Care Provider [phone] Encounter Details Date Type Department Care Team (Late st Contact Info) Description 02/23/2022 Lab Requisition [facility] Pathology & Laboratory Medicine - [facility] [address] [place] [address] Outr Resulting Lab, Provider Social History Tobacco [...] Procedure Name Priority Date/Time Associated Diagnosis Comments VITAMIN B12 Routine 02/23/2022 14:43 EST documented in this encounter Results * VITAMIN B12 (02/23/2022 14:43 EST) Vitamin B12 627 211 - 911 pg/mL 02/23/2022 23:19 EST [facility] Blood VENOUS BLOOD / Unknown 02/23/2022 14:43 EST 02/23/2022 22:06 EST Provider Outr Resulting Lab CHEMISTRY & BLOOD GAS ORDERABLES [facility] [address] [place] [address] documented in this encounter Visit Diagnoses Not on filedocumented in this encounter Care Teams Family Manager Relationship Specialty Start Date End Date Janneth Shelton PA PCP - General 10/03/12 01/07/23 Alee Franco, EDITORIAL CLERK [address] [place] [phone] PCP - General 01/08/23 documented as of this encounter
--- OUTSIDE RECORDS SUMMARY | 2023-12-13 19:15 | XMS_ITS | Encounter Summary ---
Author Organization [facility] Address [address] [place] [address] Care Team Providers Care Technician Support Association Name Role Phone Johnhemant Alee Hemant VIDEO TAPE DUPLICATOR Primary Care Provider [phone] Encounter Details Date Type Department Care Team (Late st Contact Info) Description 01/16/2023 Lab Requisition [facility] Pathology & Laboratory Medicine - [facility] [address] [place] [address] Outr Resulting Lab, Provider Social History Tobacco [...] Priority Date/Time Associated Diagnosis Comments HEPATITIS B CORE ANTIBODY (TOTAL) Routine 01/16/2023 17:16 EDT documented in this encounter Results * HEPATITIS B CORE ANTIBODY (TOTAL) (01/16/2023 17:16 EDT) Hepatitis B Core Ab, Total Negative Negative 01/17/2023 11:09 EDT [facility] Blood VENOUS BLOOD / Unknown 01/16/2023 17:16 EDT 01/16/2023 21:28 EDT Provider Outr Resulting Lab CHEMISTRY & BLOOD GAS ORDERABLES [facility] [address] [place] [address] documented in this encounter Visit Diagnoses Not on filedocumented in this encounter Care Teams Technician Support Association Relationship Specialty Start Date End Date Alee Franco, RUTHY [address] [place] [phone] PCP - General 01/08/23 documented as of this encounter
--- OUTSIDE RECORDS SUMMARY | 2023-12-13 19:15 | XMS_ITS | Clinical Summary ---
Author Organization [facility] Address [address] [place] [address] Care Team Providers Care Project Developer Name Role Phone Joan Alee العراقي PROFESSOR OF GEOLOGY Primary Care Provider [phone] Allergies No known active allergies Medications Medication [...] 10:18 EDT Sexual Orientation Not on file Obstetrics History Last Filed Vital Signs Vital Sign Reading Time Taken Comments Blood Pressure 102/52 08/08/2023 1315 EDT Pulse 52 08/08/2023 1315 EDT Temperature 36.3 ??C (97.3 ??F) 08/08/2023 1233 EDT Respiratory Rate 16 08/08/2023 1315 EDT Oxygen Saturation 100% 08/08/2023 1233 EDT Inhaled Oxygen Concentration - - Weight - - Height - - Body Mass Index - - Plan of Treatment Health Maintenance Due Date Last Done Comments Hepatitis B Vaccine (1 of 3 - 19+ 3-dose series) 10/12 COVID-19 Vaccine (2022- season) 2023 Hepatitis C Screen Completed 01/16/2023 Procedures Procedure Name Priority Date/Time Associated Diagnosis Comments HEPATITIS C AB W REFLEX TO HCV RNA BY PCR Routine 01/16/2023 17:16 EDT from Last 3 Months or Most Recently Relevant to Health Maintenance Results * HEPATITIS C AB W REFLEX TO HCV RNA BY PCR (01/16/2023 17:16 EDT) Hep C Antibody Negative Negative 01/17/2023 10:15 EDT [facility] Blood VENOUS BLOOD / Unknown 01/16/2023 17:16 EDT 01/16/2023 21:28 EDT Provider Outr Resulting Lab CHEMISTRY & BLOOD GAS ORDERABLES [facility] [address] [place] [address] from Last 3 Months or Most Recently Relevant to Health Maintenance Care Teams Project Developer Relationship Specialty Start Date End Date Alee Franco NP [address] [place] [phone] PCP - General 01/08/23
--- OUTSIDE RECORDS SUMMARY | 2023-12-13 19:15 | XMS_ITS | Encounter Summary ---
Author Organization [facility] Address [address] [place] [address] Care Team Providers Care Gut Carrier Name Role Phone Joan Alee Malcom ELEVATOR DISPATCHER Primary Care Provider [phone] Encounter Details Date Type Department Care Team (Late st Contact Info) Description 01/16/2023 Lab Requisition [facility] Pathology & Laboratory Medicine - [facility] [address] [place] [address] Outr Resulting Lab, Provider Social History Tobacco [...] Procedure Name Priority Date/Time Associated Diagnosis Comments HIV 1/2 ANTIGEN AND ANTIBODY, 4TH GENERATION Routine 01/16/2023 17:16 EDT documented in this encounter Results * HIV 1/2 ANTIGEN AND ANTIBODY, 4TH GENERATION (01/16/2023 17:16 EDT) HIV 1 and 2 Antibody/p24 Antigen, 4th Generation Negative Negative 01/17/2023 9:58 EDT [facility] Comment:If acute HIV-1 infec tion is suspected in a high risk patient, submit plasma specimen for HIV-1 RNA quantitation test. Blood VENOUS BLOOD / Unknown 01/16/2023 17:16 EDT 01/16/2023 21:28 EDT Narrative [facility] - 01/17/2023 9:58 EDT Fourth Generation assay performed on the Siemens Guomaiaur XPT. Provider Outr Resulting Lab IMMUNOLOGY A ND SEROLOGY ORDERABLES [facility] [address] [place] [address] documented in this encounter Visit Diagnoses Not on filedocumented in this encounter Care Teams Gut Carrier Relationship Specialty Start Date End Date Alee Franco NP [address] [place] [phone] PCP - General 01/08/23 documented as of this encounter
--- OUTSIDE RECORDS SUMMARY | 2023-12-13 19:15 | XMS_ITS | Encounter Summary ---
Author Organization [facility] Address [address] [place] [address] Care Team Providers Care Contact Center Manager Name Role Phone Joan Alee العراقي SENIOR SOFTWARE DEVELOPMENT MANAGER Primary Care Provider [phone] Reason for Visit * Reason Comments Neck Pain Bilateral Encounter Details Date Type Department Care Team (Latest Contact Info) Description 04/12/2023 8:30 EST Office Visit [facility] Interventional Pain [address] [place] [address] Imtiaz Chatterjee MD [address] [facility] [address] [place] [address] Myofascial pain (Primary Dx) Social History Tobacco Use Types Packs/Day Years Used Date Smoking Tobacco: Never Assessed Sex and Gender Information Value Date Recorded Sex Assigned at Not on file Gender Identity Female 01/08/2023 10:18 EDT Sexual Orientation Not on file documented as of this encounter Last Filed Vital Signs Vital Sign Reading Time Taken Comments Blood Pressure 121/84 04/12/2023 0815 EST Pulse 67 04/12/2023 0815 EST Temperature 36.3 ??C (97.3 ??F) 04/12/2023 0815 EST Respiratory Rate 16 04/12/2023 0815 EST Oxygen Saturation 100% 04/12/2023 0815 EST Inhaled Oxygen Concentration - - Weight - - Height - - Body Mass Index - - documented in this encounter Progress Notes * Shun Ventura MD - 04/12/2023 0830 EST INTERVENTIONAL PAIN FOLLOW UP Patient Name: Shruthi Rosenberg Date of Service: 04/12/23 Requesting Physician: no referring provider Chief Complaint: Chief Complaint Patient presents with Neck Pain Bilateral Clinician Requesting Consultation: no referring provider History of Present Illness: Ms. Shruthi Rosenberg is a 27 y.o. female with past medical history listed below who returns to the pain clinic concerning chronic neck pain. Please refer to the note from Dr Arce on 01/25/23 for full details regarding the patient's pain complaint. Reports she had a diagnosis of CRPS [...] right shoulder, radiates down into the arm. Neck pain is what bothers her most. Feels a tight sensation in the upper [...] to a lesser degree. Also taking celebrex. Inj Hx 7-8 Stellate ganglion injections ([facility] [place]) Upper trapezius botox injection Patient currently denies any bowel and/or bladder incontinence, progressive weakness, saddle numbness, unexplained fever, trauma or unexplained weight loss. Allergies: No Known Allergies Current Medications: Current Outpatient Medications Medication buPROPion (WELLBUTRIN SR) 150 mg SR tablet DULoxetine (CYMBALTA) 20 mg delayed release capsule DULoxetine (CYMBALTA) 60 mg capsule omeprazole (PRILOSEC) 40 mg capsule propRANolol (INDERAL LA) 80 mg SR capsule No current facility-administered medications for this visit. Past Medical HX: History reviewed. No pertinent past medical history. Past Surgical HX: History reviewed. No pertinent surgical history. Past Social HX: Social History Socioeconomic History Marital status: Single Spouse name: Not on file Number of children: Not on file Years of education: Not on file Highest education level: Not on file Occupational History Not on file Tobacco Use Smoking status: Not on file Smokeless tobacco: Not on file Substance and Sexual Activity Alcohol use: Not on file Drug use: Not on file Sexual activity: Not on file Other Topics Concern Not on file Social History Narrative Not on file Social Determinants of Health Financial Resource Strain: Not on file Food Insecurity: Not on file Transportation Needs: Not on file Physical Activity: Not on file Stress: Not on file Social Connections: Not on file Housing Stability: Not on file Family HX: Patient denies any family history of chronic pain, immunological or genetic syndromes that is contributory to the patient's current symptoms. Physical Exam: Vitals: BP 121/84 (BP Cuff Location: Left arm, BP Patient Position: Sitting, BP Cuff Sizes: Adult, small) Pulse 67 Temp 36.3 ??C (97.3 ??F) (Temporal) Resp 16 SpO2 100% General: Patient is alert and oriented x3, no acute distress Neuro: Cranial nerves II-XII grossly intact and symmetric Cardio: ext wwp Lungs: no evidence of labored breathing Skin: clear, warm, dry and intact and no rashes, bruises or petechiae noted Musculoskeletal: Cervical Spine: tenderness elicited upon palpation in the upper trapezius and cervical paraspinals.+ pain elicited upon facet loading Upper Extremity: strength 5/5, sensory bilaterally equal to light touch, negative spurling's test Assessment/Plan: 1. Myofascial pain Ms. Shruthi Rosenberg is a 27 y.o. female who has no past medical history on file. she returns to the pain clinic for treatment recommendations concerning chronic neck and right upper extremity pain. Presents as follow up for discussion of cervical MRI results which did not demonstrate many changes aside from small C5- 6 disc protrusion. Her neck and trapezius pain seem to be bothering her the most. We discussed several interventions and at this point in time we decided to trial trigger point injections to target her myofascial pain. All risks, benefits, and alternatives were thoroughly explained to Ms. Shruthi Rosenberg who verbally communicated understanding of the management plan. We will also have her sign forms for release of prior health information related to her pain care in [place]. Shun Ventura MD Pain Medicine Fellow PGY5 04/12/23 9:22 Attending attestation: I saw and examined the patient with the pain fellow/resident. I agree with the findings and plan of care documented in this note. Imtiaz Chatterjee MD 04/12/2023 documented in this encounter Plan of Treatment Not on file documented as of this encounter Visit Diagnoses Diagnosis Myofascial pain- Primary Mylagia and myositis, unspecified documented in this encounter Care Teams Contact Center Manager Relationship Specialty Start Date End Date Alee Franco, SENIOR SOFTWARE DEVELOPMENT MANAGER [address] [place] [address] PCP - General 01/08/23 documented as of this encounter
--- OUTSIDE RECORDS SUMMARY | 2023-12-13 19:15 | XMS_ITS | Encounter Summary ---
Author Organization [facility] Address [address] [place] [address] Care Team Providers Care Oil Well Services Field Supervisor Name Role Phone Janneth Shelton Primary Care Provider Alee Enamorado DIESEL TRUCK CRANE OPERATOR Primary Care Provider [phone] Encounter Details Date Type Department Care Team (Late st Contact Info) Description 09/21/2022 Lab Requisition [facility] Pathology & Laboratory Medicine - [facility] [address] [place] [address] Outr Resulting Lab, Provider Social History Tobacco [...] Name Priority Date/Time Associated Diagnosis Comments VITAMIN D (25,OH) Routine 09/21/2022 16: 02 EDT documented in this encounter Results * VITAMIN D (25,OH) (09/21/2022 16:02 EDT) 25OH Vitamin D Tot 37 30 - 100 ng/mL 09/22/2022 11:23 EDT [facility] Comment: Vitamin D 25,OH Interpretive Ranges: Deficiency: ??<10.0 ng/mL Insufficiency: ??10.0 - 30.0 ng/mL Sufficiency: ??30.0 - 100.0 ng/mL Toxicity: ??>100.0 ng/mL Blood VENOUS BLOOD / Unknown 09/21/2022 16:02 EDT 09/21/2022 21:26 EDT Provider Outr Resulting Lab CHEMISTRY & BLOOD GAS ORDERABLES [facility] [address] [place] [address] documented in this encounter Visit Diagnoses Not on filedocumented in this encounter Care Teams Oil Well Services Field Supervisor Relationship Specialty Start Date End Date Janneth Shelton PA PCP - General 10/03/12 01/07/23 Alee Franco, RUTHY [address] [place] [phone] PCP - General 01/08/23 documented as of this encounter
[2023-12-14 22:46] LABS: Campylobacter PCR Negative (Negative); Salmonella PCR Negative (Negative); Shiga Toxin PCR Negative (Negative); Shigella/Enteroinvasive Ecoli Negative (Negative)
[2023-12-18 15:58] LABS: Calprotectin 59.4 mcg/g
== END 2023-12-13 19:10 | disposition home or self-care (01) ==
LOC: LBN 19:09
PROVIDERS: PCP Nurse Practitioner Family; Visit Provider Nurse Practitioner Family
DX: K52.9 Noninfective gastroenteritis and colitis, unspecified (principal); R19.7 Diarrhea, unspecified; F33.1 Major depressive disorder, recurrent, moderate
CPT/HCPCS: 87493; 87505; 83630; 83993; 87177

== ENCOUNTER 2024-04-05 10:00 | Day surgery (SDC) | payer OTHER, SELFPAY ==
--- NOTE | 2024-04-04 16:32 | PDOC.DSDIS_ITS ---
Date of service: 04/05/24 Discharge Plan Disposition Patient Disposition: Other Disposition Not Listed Other Facility: Home Condition: Good Discharge Details Reason For Visit: EGD and colonoscopy Attending Provider: Steven Pino Primary Care Provider: Alee Franco Home Meds and New Rx's Prescriptions: Continued Vraylar 3 mg capsule 3 mg PO DAILY bupropion HCl 300 mg tablet extended release 24 hr 150 mg PO QAM ferrous sulfate 1 cap PO DAILY magnesium oxide 250 mg magnesium tablet 500 mg PO DAILY propranolol 80 mg capsule,extended release 24 hr 80 mg PO DAILY rizatriptan 10 mg tablet See Rx Instructions PO .COMPLEX PRN (Reason: migraine headache) Rx Instructions: take 1 tab at onset of headache; if no relief may repeat 1 tab after at least 2 hrs; max = 3 tabs/24 hr orally PRN; sumatriptan succinate 100 mg tablet See Rx Instructions PO .COMPLEX Rx Instructions: take 1 tab at onset of headache; if no relief, may repeat 1 tab after at least 2 hrs; max = 2 tabs/24 hrs PO vitamin B complex Tablet 1 tab PO DAILY ergocalciferol (vitamin D2) 400 UNIT tablet 1 tab-cap PO DAILY omeprazole 40 mg capsule,delayed release(DR/EC) 40 mg PO DAILY Qty: 90 3RF celecoxib 100 mg capsule See Rx Instructions .ROUTE .COMPLEX Qty: 60 2RF Dose Instruction: TAKE ONE CAPSULE BY MOUTH TWICE A DAY Rx Instructions: TAKE ONE CAPSULE BY MOUTH TWICE A DAY Discontinued polyethylene glycol 3350 17 gram/dose powder 238 g PO ONCE Qty: 238 0RF Rx Instructions: take per colonoscopy instructions bisacodyl [Dulcolax (bisacodyl)] 5 mg tablet,delayed release (DR/EC) 5 mg PO ONCE Qty: 4 0RF Rx Instructions: take per colonoscopy instructions Discharge Instructions Instructions: Gastritis Additional Instructions: May, it was very nice seeing you today, I hope you are comfortable throughout the procedure. Everything went very smoothly. With regards to your upper endoscopy, there are a few findings. The first is that you have a small hiatal hernia. This occurs when the top part of your stomach slips above your diaphragm, which is also known as your breathing muscle. This can cause some difficulty or discomfort associated with swallowing. They are typically graded 1 through 4, and I believe that yours is grade 2. There is an operation to fix this, but I do not perform that here. I be more than happy to refer you to a specialist if you are interested in discussing it with them. In the big picture of things I am a little skeptical that this is causing much in terms of your symptoms, and to be honest, I do not think that there would be much advantage to fixing it. But there is certainly no disadvantage to getting a second opinion regarding this. The second finding is that you have a little bit of gastritis, or small area of ulceration in your stomach. This could be causing some abdominal discomfort, and could be contributing to the elevated fecal calprotectin level. Generally, treatment of gastritis and peptic ulcer disease focuses on modifications to diet, and avoiding things that cause irritation of the stomach lining. Cigarette smoking, alcohol consumption, and some medications can all irritate the stomach. The 1 obvious medication on your list that may be causing this is Celebrex. Although this is generally considered less irritating than similar medications such as aspirin, gastritis is still associated with its use. In that regard, I would give consideration to the benefits that you get from this medication compared to the fact that it may be contributing to some of your symptoms. A stomach infection called Helicobacter pylori can also cause this, so I did some biopsies of the stomach to rule that out. Based on what I saw on the upper endoscopy, I think that celiac disease is less likely, but as I discussed before hand, I did do some biopsies of the duodenum to rule that out as well. Your colonoscopy is all totally normal-appearing. I did not see any signs of Crohn's disease or ulcerative colitis. I was able to get the camera into the last part of your small intestine, which is also called the terminal ileum as that is a common place for Crohn's disease to manifest itself. Again, this appears normal to the naked eye, but to be safe, I did do some biopsies here, as well as multiple areas along the length of your colon as well. All the biopsy results will take about a week or 2 to get back, but once my office has them, we will be in touch with any other recommendations. If you have any questions in the meantime, please do not hesitate to call or ask at any point. 1. If tolerated, consume a soft, low fiber diet for 1-2 days. 2[address] Do not drive, drink alcohol, operate machinery, make critical decisions, or do activities that require coordination or balance for 24 hours. 3. Because air was put into your colon during the procedure, expelling air from your rectum (passing gas or farting) is normal. 4. You may not have a bowel movement for 1-3 days because of the colonoscopy prep. This is normal. 5. You may experience a sore throat for 24 to 48 hours. You may use throat loze nges or gargle with warm salt water to relieve the discomfort. 6. Because air was put into your stomach during the procedure, you may experience some belching. 7. Go directly to the emergency room if you notice any of the following: Develop chills (warm to touch), or if you have a thermometer and your temperature is above 101 Difficulty breathing or difficultly swallowing Persistent vomiting Severe abdominal pain, other than gas cramps Severe chest pain Black, tarry stools Any bleeding ? exceeding one tablespoon 8. Call your physician if the site where your intravenous was started becomes red, swollen, painful, and warm to touch. 9. Your physician has reviewed your pre-procedure medications. Please continue to take those medications as previously ordered. You will be given specific information/education regarding any changes to your medications before leaving. Activity:: Activity as Tolerated Diet:: As Tolerated Discharge Orders Discharge Orders: Discharge Order (Routine); Ordered 04/04/24 Ordered By: Steven Pino DS: Diagnosis Discharge Diagnosis (1) Elevated fecal calprotectin: Status: Acute Asessment and Plan: Follow-up on biopsy results
--- NOTE | 2024-04-04 16:33 | W.PM.ENDDOP ---
Date of service: 04/05/24 Time of Service: : Endoscopy Report DATE OF PROCEDURE: 04/05/24 PRE-OP DIAGNOSIS: inflammatory bowel disease POST-OP DIAGNOSIS: other (Gastritis) PROCEDURE: EGD with biopsies and colonoscopy with biopsies SURGEON: Steven Pino ANESTHESIA TYPE: General:No Airway ESTIMATED BLOOD LOSS: 10 PATHOLOGY: other (Biopsies of duodenum and duodenal bulb, gastric antral and gastric body biopsies; biopsies of terminal ileum, and random colonic biopsies) COMPLICATIONS: None DISPOSITION: same day INDICATIONS: Shruthi is a 28 year old woman with non-focal abdominal discomfot associated with nausea and now change in the character and consistency of her stools. She has an elevated fecal calprotectin level suggesting inflammatory bowel disease. PREP: Miralax/Dulcolax PROCEDURE START TIME: 11:30 PROCEDURE END TIME: 11:56 COLONOSCOPY RETRACTION TIME: 10 FINDINGS: Normal esophagus and GE junction at 38 cm from the incisors, mild gastritis, normal-appearing duodenal bulb; normal-appearing colonoscopy PROCEDURE DESCRIPTION: After the initiation of anesthesia, and with the assistance of a bite block, I advanced a standard gastroscope through the mouth past the hypopharynx and into the esophagus.? Under the direct vision of the scope, I advanced down the esophagus towards the stomach. The GE junction and Z-line were encountered at 38 cm from the incisors. The Z-line was regular. Narrowband imaging was used to assist with the analysis. There is no evidence of any Hernández's esophagus. I advanced down into the stomach and insufflated into the rugae were obliterated. I performed retroflexion. There is a grade 2 hiatal hernia. There is no evidence of any irritation along the hiatus. There is a small focus of gastritis without any discrete ulceration in the gastric body. There is no visible vessel. There is no stigmata of recent bleeding. I advanced down around the incisura angularis and through the pylorus into the duodenum. Generally, the duodenal bulb appears normal. I suppose that might be just a tiny bit of blunting of the villi, but they are still apparent. I was able to advance down into the third portion of the duodenum. All of this is normal and healthy appearing. I did do some nondirected cold forceps biopsies of the duodenum and duodenal bulb to rule out celiac disease. There was minimal bleeding from the biopsy sites. I brought the camera back up into the stomach and biopsied the gastric antrum and body as well to rule out Helicobacter pylori. The stomach was then completely emptied, and the camera was brought back out along the length of the esophagus 1 last time. No other abnormalities were appreciated. We then rolled her back into the left lateral decubitus position, taking great care to make sure that she was padded and supported appropriately. External exam was normal.? Perineum and skin were normal, as was the anal verge.? There was no evidence of external hemorrhoids.? Next, I performed a digital rectal exam.? I did not appreciate any abnormal findings.? Next, I advanced a colonoscope into the rectal vault.? I performed retroflexion.? This appeared normal.? The entire rectal vault was carefully examined. There is no evidence of irritation, inflammation, ulceration, or any other pathology. There is no evidence of any ulcerative colitis. Using insufflation, I then advanced the colonoscope beyond the rectal folds and into the sigmoid colon before advancing towards the cecum.? The scope was noted to be in the cecum by identification of the ileocecal valve and appendiceal orifice.? The terminal ileum was cannulated. This appeared normal. I did not appreciate any clinical findings consistent with Crohn's disease. I did do nondirected cold forceps biopsies of the terminal ileum. There was minimal bleeding from the biopsy sites. I brought the camera back into the cecum. I then began withdrawing the colonoscope using repeated irrigation as necessary for full evaluation of the colonic mucosa. Although the mucosa was all totally normal and healthy appearing, I did do some nondirected cold forceps biopsies along the length of the colon to rule out microscopic colitis. ?Once the scope was withdrawn to the level of the rectum, great care was taken to examine portions of the rectal folds.? Finally, the scope was withdrawn and the patient was brought to the same-day surgery recovery unit as the anesthetic wore off. ?The findings and instructions were shared with the patient prior to discharge. [place] bowel prep score from right to left was 3, 3, 3.
[2024-04-05 10:30] VITALS: BP 113/84; PULSE 79; RESP 18; TEMP 36.6; O2SAT 79
[2024-04-05] MEDS: Lactated Ringers 1,000 ML 80 ML IV (11:00)
--- NOTE | 2024-04-05 11:11 | W.ANESPRE ---
General Info Date of Service Date Performed: 04/05/24 Height: 5 ft 2 in Weight: 78.2 kg Body Mass Index (BMI): 31.5 Surgical Procedure: Operation Date: 04/05/24 11:20 Proposed Procedure Side Surgeon p Colonoscopy/Gastroscopy Steven Pino MD Meds Allergies and Home Medications Allergies Allergy/AdvReac Type Severity Reaction Status Date / Time No Known Allergies Allergy Unverified 04/05/24 10:51 Home Medication ?Medication ?Instructions ?Recorded ergocalciferol (vitamin D2) 10 mcg 1 tab-cap PO DAILY 07/12/12 (400 unit) tablet ferrous sulfate 1 cap PO DAILY 10/04/23 magnesium oxide 500 mg PO DAILY 10/04/23 propranolol 80 mg capsule,24 80 mg PO DAILY 10/04/23 hr,extended release rizatriptan 10 mg tablet See Rx Instructions PO .COMPLEX 10/04/23 PRN migraine headache sumatriptan succinate 100 mg tablet See Rx Instructions PO .COMPLEX 10/04/23 vitamin B complex 1 tab PO DAILY 10/04/23 omeprazole 40 mg capsule,delayed 40 mg PO DAILY #90 caps 01/23/24 release cariprazine 3 mg capsule (Vraylar) 3 mg PO DAILY 02/09/24 celecoxib 100 mg capsule See Rx Instructions .Route 03/05/24 .COMPLEX #60 caps bisacodyl 5 mg tablet,delayed 5 mg PO ONCE colonscopy bowel prep 04/02/24 release (Dulcolax (bisacodyl)) #4 tabs bupropion HCl 300 mg 24 hr tablet, 150 mg PO QAM 04/02/24 extended release polyethylene glycol 3350 17 238 g PO ONCE colonoscopy prep 04/02/24 gram/dose oral powder #238 grams Current Visit Medications: Current Medications Generic Name Dose Route Start Last Admin Trade Name Freq PRN Reason Stop Dose Admin Ringer's Solution 1,000 mls @ 80 mls/hr 04/05/24 10:00 04/05/24 11:00 IV 05/05/24 09:59 80 mls/hr INFUSION JACQUELINE Administration IV Miscellaneous Supplies 1 each 04/05/24 06:00 Iv Access IV 04/05/24 23:59 DIRECTED JACQUELINE Ondansetron HCl 4 mg 04/04/24 16:35 Ondansetron 4 Mg/2 Ml Vial IVP 05/04/24 16:34 Q4H PRN PRN Nausea / Vomiting Sodium Chloride 0 ml 04/05/24 06:00 Normal Saline Flush 10 Ml Syr IV 04/05/24 23:59 PRN PRN Sodium Chloride 0 ml 04/05/24 06:00 Normal Saline 10 Ml Vial IJ 04/05/24 23:59 DIRECTED PRN Sterile Water 0 ml 04/05/24 06:00 Water,Injection,Sterile 10 Ml Vial IJ 04/05/24 23:59 DIRECTED PRN PFSH Active Problems Active Problems: Problem Status Onset Code Family history of colon cancer Acute Z80.0 Abdominal cramping Acute R10.9 Elevated fecal calprotectin Acute R19.5 Chronic diarrhea Acute K52.9 Epigastric pain Acute R10.13 Nausea & vomiting Acute R11.2 Anorexia Acute R63.0 Abnormal imaging of central nervous system Acute R90.89 Disorder of right patellofemoral joint Acute M22.2X1 Acquired talipes planus Acute M21.40 Pain, joint, knee, right Acute M25.561 Complex regional pain syndrome I of unspecified upper limb Acute G90.519 Prediabetes Acute R73.03 Fatigue Acute R53.83 Fibromyalgia Acute M79.7 Pain in thoracic spine Acute M54.6 Neck pain Acute M54.2 Pain of cervical spine Acute M54.2 Excessive and frequent menstruation Acute N92.0 Disorder of nasal sinus Acute J34.9 PTSD (post-traumatic stress disorder) Acute F43.10 Psychoactive substance dependence Acute F19.20 Mood disorder Acute F39 Major depression Chronic F32.9 Obesity Chronic E66.9 Bilateral carpal tunnel syndrome Acute G56.03 Hallux rigidus, right foot Acute 01/06/17 M20.21 Medical History Medical History Disorder of autonomic nervous system Family history of substance abuse Family history of malignant neoplasm History of non-suicidal self-harm History of nutritional disorder Nondependent alcohol abuse, in remission RSD (reflex sympathetic dystrophy) Migraine GERD (gastroesophageal reflux disease) Anxiety Depression Medical History Comments:: pt reports no metal, no dentures, no loose teeth Surgical History Surgical History History of tonsillectomy and adenoidectomy (2006) History of carpal tunnel release History of surgical procedure (2010) placement and removal of neurostimulator Tobacco Smoking/Tobacco Use Status: Never Passive smoking exposure: No Second hand exposure: Yes Alcohol Alcohol Intake: current Alcohol intake frequency: holidays/special occasions only Substance Use Substance use: Daily Substance use type: marijuana Vital Signs and Lab Results Vital Signs Most Recent Vital Signs in EMR: Most Recent Vital Signs Temp Pulse Resp BP Pulse Ox 36.6 C 79 18 113/84 79 L 04/05/24 10:30 04/05/24 10:30 04/05/24 10:30 04/05/24 10:30 04/05/24 10:30 Lab Results Blood Type / Crossmatch: No Data to Display Complete Blood Count: No Data to Display Complete Metabolic Panel: No Data to Display Liver Function Panel: No Data to Display Coagulation Panel: No Data to Display Cardiac Panel: No Data to Display Arterial Blood Gas: No Data to Display Venous Blood Gas: No Data to Display Pancreas Panel: No Data to Display Thyroid Panel: No Data to Display Infectious Disease: No Data to Display Blood Cultures: No Data to Display Toxicology Panel: No Data to Display Panel: No Data to Display Anesthesia Assessment and Plan Anesthesia History Personal History: No History of Anesthesia Complications Family History: No Family History of Anesthesia Complications Exercise Tolerance Exercise Tolerance: Metabolic Equivalents>4 Pertinent Negatives Pertinent Negatives: No Symptoms of GERD Cardiac & Pulmonary Exam Cardiac Exam: Normal S1/S2 Heart Sounds Pulmonary Exam: Clear Bilateral Breath Sounds Implantable Cardiac Device Does patient have a Pacemaker or an ICD?: No Airway Exam Known Difficult Airway: No Mallampati Class: 1 Mouth Opening: Normal (> 3cm) Thyromental Distance: Greater than 3 cm Neck Range of Motion: Full ROM Neck Circumference: Normal Teeth Condition: Normal Dentition ASA Classification ASA Score: ASA 3 Emergency Case?: No NPO Status NPO Status: NPO Clears >2 hours, Solids >8 hours Status Status: Negative HCG Anesthesia Plan Resuscitation Status: Full Code Anesthesia Technique: General Anesthesia Airway Planned: Natural Airway Monitors Used: Standard Monitors
[2024-04-05 11:15] VITALS: BMI 31.5
--- NOTE | 2024-04-05 11:33 | BOWEL_PTH ---
PATIENT: Shruthi Rosenberg LOC: [facility] U#:[id number] AGE/SX: 28/F ROOM: RE04/05/[address]: Steven Pino MD : 1995 BED: DIS: 04/05/2024 SPEC #: [id number] RECD: 04/05/24 12:53 STATUS: LAUREN RE #: [id number] TROY: 04/05/24 11:[address]: Steven Pino DEPT: Surgical Specimen RECD BY: Emili Saavedra ENTERED: 04/05/24 12:59 SP TYPE: Bowel OTHR DR: Alee Franco APRN Tissues: 1 - BIOPSY BOWEL 2 - BIOPSY BOWEL 3 - STOMACH BIOPSY 4 - STOMACH BIOPSY 5 - BIOPSY BOWEL 6 - BIOPSY BOWEL Procedures: GROSS AND MICRO LEVEL 4 Comments: [id number]
[2024-04-05 12:02] VITALS: BP 107/79; PULSE 78; RESP 16; TEMP 36.5; O2SAT 99
--- NOTE | 2024-04-05 12:35 | W.ANESPOSTOP ---
Postoperative Evaluation Date, Time and Location Date Performed: 04/05/24 Time Performed: 12:35 Patient Location: Day Surgery Unit Vital Signs Most Recent Imported Vital Signs: Most Recent Vital Signs Temp Pulse Resp BP Pulse Ox 36.5 C 78 16 107/79 99 04/05/24 12:02 04/05/24 12:02 04/05/24 12:02 04/05/24 12:02 04/05/24 12:02 Assessment Mental Status: Awake (Alert & Oriented to Patient Baseline) Airway and Respiratory Function: Patent airway with normal (patient baseline) respiratory exam Cardiovascular Function: Hemodynamically Stable Hydration Status: Adequately Hydrated Nausea & Vomiting: No Nausea or Vomiting Pain: Pt. Denies Any Pain Peripheral Nerve Block: Patient did not receive a nerve block
[2024-04-05 12:49] VITALS: BP 114/75; PULSE 71; RESP 20; TEMP 36.4; O2SAT 100
== END 2024-04-05 12:50 | disposition other institution (70) ==
PROVIDERS: PCP Nurse Practitioner Family; Visit Provider Surgery
PROC: (CPT 45380; principal; 2024-04-05 11:15)
DX: R19.5 Other fecal abnormalities (principal); K29.00 Acute gastritis without bleeding; K63.89 Other specified diseases of intestine; K29.70 Gastritis, unspecified, without bleeding
CPT/HCPCS: 45380; 43239; 81025; 88305; J1885; J2003; J2405; J2704